=== PATIENT | male | born 1960 | race Caucasian/White ===

== ENCOUNTER 2021-06-21 12:16 | Inpatient (IN) | payer OTHER, SELFPAY ==
[2021-06-21] VITALS (12 sets, daily range): BP systolic 91–162; BP diastolic 31–45; PULSE 38–105; RESP 15–18; TEMP 35.8–36.7; O2SAT 96–99; BMI 25.0; BMI 24.6
--- NOTE | 2021-06-21 | ECG_ITS ---
Test Reason : WEAKNESS Blood Pressure : / mmHG Vent. Rate : 043 BPM Atrial Rate : 064 BPM P-R Int : 000 ms QRS Dur : 110 ms QT Int : 528 ms P-R-T Axes : 000 008 086 degrees QTc Int : 446 ms Sinus rhythm with 2nd degree A-V block (Mobitz I) Left ventricular hypertrophy with repolarization abnormality ( Sokolow-Sebastian , Kar product ) Anteroseptal infarct , age undetermined Abnormal ECG No previous ECGs available Referred By: Generic ED Physician Electronically Signed By:KATHY MORRIS MD
--- NOTE | 2021-06-21 | ECG_ITS ---
Test Reason : BRADYCARDIA Blood Pressure : / mmHG Vent. Rate : 038 BPM Atrial Rate : 038 BPM P-R Int : 256 ms QRS Dur : 108 ms QT Int : 520 ms P-R-T Axes : 043 002 086 degrees QTc Int : 413 ms Normal sinus rhythm with 2nd degree A-V block Septal infarct (cited on or before 21-JUN-2021) Abnormal ECG When compared with ECG of 21-JUN-2021 12:25, 2:1 block is now present Serial changes of Septal infarct Present Referred By: Cristina Smith Electronically Signed By:KATHY MORRIS MD
--- NOTE | ~2021-06-21 | FL_ITS ---
EXAMINATION: XR FLUOROSCOPY WITH IMAGES CLINICAL INFORMATION: Cardiac pacemaker COMPARISON: Chest radiograph 06/21/2021 TECHNIQUE: Fluoroscopy time: 351.1 seconds Cumulative dose: 151.91 mGy Images: 5 FINDINGS: Intraoperative fluoroscopy was provided. No radiologist was in attendance. 2 cardiac pacemaker leads incompletely imaged. Please refer to operative report for complete evaluation. FL/FL guidance in OR IMPRESSION: Please refer to operative report for complete evaluation.
--- NOTE | ~2021-06-21 | XR_ITS ---
EXAMINATION: PORTABLE CHEST 1 VIEW CLINICAL INFORMATION: new pacemaker . COMPARISON: 06/21/2021. TECHNIQUE: Portable frontal view of the chest was obtained. FINDINGS: The lungs are well expanded. No focal infiltrate, effusion, edema, or pneumothorax. Cardiac and mediastinal silhouettes are within normal limits for size. New dual-lead pacemaker seen with lead tips overlying the right atrium and proximal right ventricle. Coronary artery stents again noted. Vascular calcification in the aorta. No acute bony abnormality seen. XR/XR chest 1V IMPRESSION: New dual-lead pacemaker. No pneumothorax. Chronic changes otherwise.
--- NOTE | ~2021-06-21 | XR_ITS ---
EXAMINATION: XR CHEST CLINICAL INFORMATION: Change of IV. COMPARISON: None. TECHNIQUE: Frontal view of the chest was obtained. FINDINGS: No significant abnormality is noted involving the heart, lungs, mediastinum, bony thorax or soft tissues. XR/XR chest 1V IMPRESSION: No acute cardiopulmonary process.
--- NOTE | ~2021-06-21 | XR_ITS ---
EXAMINATION: XR CHEST CLINICAL INFORMATION: Follow-up one week placement of new pacemaker COMPARISON: 06/22/2021 TECHNIQUE: Frontal view of the chest was obtained. FINDINGS: Left-sided pacemaker lead tips overlie the right atrium and right ventricle, similar to prior. Lung volumes are symmetric. No focal consolidation is seen. No evidence of pneumothorax, pleural effusion, or pulmonary edema. Cardiac size is within normal limits. Calcification is present at the aortic arch. No acute osseous findings are seen. XR/XR chest 1V IMPRESSION: Left-sided pacemaker lead tips overlie the regions of the right atrium and right ventricle, similar to prior. No acute cardiopulmonary findings.
--- NOTE | 2021-06-21 12:34 | ED.GENADULT ---
HPI - General Adult General Chief complaint: General Medical Stated complaint: Chest pain sent from urgent care Time Seen by Provider: 06/21/21 12:34 Source: patient Mode of arrival: ambulatory Limitations: no limitations History of Present Illness HPI narrative: 60-year-old male with history of coronary disease with 2 stents that were done 1 year ago at [facility] on Brilinta, hypertension on metoprolol, high cholesterol, rheumatoid arthritis here with several days of fatigue, dizziness and weakness. Patient tells me he was seen at urgent care and was sent into the emergency department for further evaluate. Patient denies chest pain, shortness of breath, cough, fever, leg swelling or leg pain. Denies taking any additional doses of metoprolol. Related Data Home Medications Medication Instructions Recorded Confirmed amlodipine 5 mg tablet 1 tab PO DAILY 06/21/21 06/21/21 aspirin 81 mg chewable tablet 1 tab PO DAILY 06/21/21 06/21/21 atorvastatin 80 mg tablet 1 tab PO DAILY@1200 06/21/21 06/21/21 baricitinib 2 mg tablet (Olumiant) 1 tab PO BEDTIME 06/21/21 06/21/21 esomeprazole magnesium 20 mg 1 cap PO DAILY 06/21/21 06/21/21 capsule,delayed release hydrochlorothiazide 25 mg tablet 1 tab PO DAILY 06/21/21 06/21/21 lisinopril 40 mg tablet 1 tab PO DAILY 06/21/21 06/21/21 metoprolol succinate 50 mg 1 tab PO DAILY 06/21/21 06/21/21 tablet,extended release 24 hr prednisone 5 mg tablet 1 tab PO DAILY 06/21/21 06/21/21 ticagrelor 90 mg tablet (Brilinta) 1 tab PO BID 06/21/21 06/21/21 Allergies Allergy/AdvReac Type Severity Reaction Status Date / Time No Known Allergies Allergy Verified 06/21/21 12:47 Review of Systems Review of Systems: Yes all other systems are reviewed and are negative Constitutional: Constitutional: Reports no additional constitutional complaints, Denies body ache(s), Denies chills, Reports fatigue, Denies fever(s), Denies headache(s) and Reports weakness Eyes: Eyes: Reports no additional eye complaints and Denies change in vision ENT: Reports system reviewed and no additional complaints, except as documented, Reports dizziness, Denies headache(s), Denies nasal congestion, Denies nasal discharge and Denies neck pain Cardiovascular: Cardiovascular: Reports no additional cardiovascular complaints, Denies chest pain, Denies leg edema and Denies dyspnea Respiratory: Respiratory: Reports no additional respiratory complaints, Denies cough and Denies dyspnea Gastrointestinal: Gastrointestinal: Reports no additional gastrointestinal complaints, Denies abdominal pain, Denies diarrhea, Denies nausea and Denies vomiting Genitourinary: Genitourinary: Denies urinary incontinence Musculoskeletal: Musculoskeletal: Reports no additional musculoskeletal complaints, Denies back pain, Denies arthralgias, Denies joint swelling, Denies neck pain, Denies numbness and Denies tingling Integumentary/Breasts: Skin/Breast: Reports system reviewed and no additional complaints, except as docu and Denies rash Neurologic: Reports system reviewed and no additional complaints, except as documented, Reports dizziness, Denies headache(s), Denies numbness, Denies tingling and Reports weakness Endocrine: Endocrine: Reports fatigue PMFSH Past Medical History Attestation statement: The following information was validated with the patient. Source: old records reviewed and nursing notes reviewed Medical History (Updated 06/21/21 @ 17:08 by BARBRA Veras) Coronary artery disease Hyperlipidemia Hypertension Rheumatoid arthritis Family History Family History (Updated 06/21/21 @ 17:08 by BARBRA Veras) Father Hypertension Social History Social History Alcohol intake: current Alcohol intake frequency: a few times a week Patient Tobacco Use Status: Former Tobacco user Use of substances other than those prescribed or required for medical reasons: Yes Substance Use Type: Marijuana Advance Directives: No Advance Directives Information Provided: No Physical Exam ED Vital Signs: Vital Signs - 24 hr 06/21/21 12:28 06/21/21 12:51 06/21/21 12:58 Temperature 96.5 F L Pulse Rate 44 L 38 L 45 L Respiratory Rate 15 18 18 Blood Pressure 147/38 H 154/36 H 126/31 L Pulse Oximetry 99 98 97 06/21/21 13:16 06/21/21 13:24 06/21/21 13:26 Temperature Pulse Rate 40 L 46 L Respiratory Rate 18 18 Blood Pressure 129/37 L 122/38 L Pulse Oximetry 99 98 06/21/21 13:41 06/21/21 13:48 06/21/21 13:51 Temperature Pulse Rate 105 H 41 L 39 L Respiratory Rate 18 18 18 Blood Pressure 105/45 L 91/43 L 140/40 H Pulse Oximetry 98 97 98 06/21/21 14:11 06/21/21 16:05 Temperature 98.1 F Pulse Rate 39 L 39 L Respiratory Rate 18 16 Blood Pressure 141/37 H 162/41 H Pulse Oximetry 96 96 BMI result Body Mass Index 25.0 Const General: cooperative, healthy appearing, comfortable and no acute distress Orientation/consciousness: patient oriented x3 Limitations: no limitations HENMT Head: Yes normal to inspection Ears: hearing grossly normal bilaterally General nose exam: Normal external nose present Face and sinus: Yes normal facial exam Mouth: Normal oral and palatal mucosa present Teeth and gingiva: dentition normal Throat: Yes posterior oropharynx normal Eyes General: appearance normal, both eyes and all related structures Pupils: Equal, round and reactive pupils present Neck Neck: Yes normal visual inspection and Yes full ROM Chest Chest palpation & inspection: normal inspection of the chest Resp Effort & Inspection: normal respiratory effort Auscultation: clear to auscultation bilaterally Cardio Rate: bradycardic Peripheral pulses: Peripheral pulses 2+ throughout GI Inspection: Yes normal to inspection Palpation (GI): Soft to palpation and nontender General: Yes no CVA tenderness Back/Spine/Pelvis Back: no CVA tenderness Thoracic/Lumbar Spine: thoracic and lumbar spine normal to inspection Skin General skin exam: no rashes or lesions noted Neuro General: patient oriented x3, gait normal and moves all extremities Cranial nerves: Yes CN's II-XII intact bilaterally, Yes Equal, round and reactive pupils present, Yes Bilaterally intact EOM present, Yes Nystagmus not present, Yes Normal facial strength present and Yes Midline tongue present Cognition (Neuro): normal cognition Gait exam (Neuro): Normal gait present Motor exam (neuro): 5/5 motor strength present throughout Sensory Exam: Normal double simultaneous stimulation for sensation Extrem General: Yes normal to inspection, Yes no pedal edema and Yes no calf tenderness Course Course Course Narrative: 60 yo male here with complaints of several days of fatigue, weakness, dizziness sent from for further eval noted to be bradycardic on arrival with a stable bp. EKG c/w with a second degree HB type 1 with HR 37-44. BP stable. Placed on cardiac cath technician. Will check labs, CXR, covid screen. Consider beta sarah OD but patient denies any extra doses of medications. He does take metoprolol but unsure of dose. Spoke to cardiology (Dr He). Recommended observation with holding beta sarah, we discussed trialing glucagon IV (confirmed dose with pharmacy 3mg IVP). Will give NSB and admit Reevaluation(s) Reevaluation #1: Single BP 91 systolic, immediate repeat improved. Will monitor. Initial troponin 135. NO chest pain. Updated cards. Plan for repeat. Time: 13:58 Reevaluation #2: Pending repeat troponin. Case was discussed with ICU-patient can be admitted to [facility] as he has stable BP. Will discuss with medicine for admit. Time: 16:00 Reevaluation #3: Troponin repeat is 205.3. This is >50% increased from previous troponin 135. Will discuss with Cardiology Time: 16:40 Additional Reevaluation(s): 1745-2nd attempt to reach Cardiology after greater than 1 hour in regards to change in troponin and query if we should start heparin. Medicine was contacted by cardiology and they will be ordering heparin Medical Decision Making MDM Narrative Medical decision making narrative: symptomatic bradycardia, ACS, beta sarah OD Medical Records Medical records reviewed: Yes I reviewed the patient's medical records. Lab Data Lab results reviewed: Yes I reviewed the patient's lab results. Result diagrams: 06/21/21 12:55 06/21/21 12:55 Labs: Lab Results 06/21/21 06/21/21 06/21/21 Range/Units 12:55 12:55 12:55 WBC 9.3 (4.8-10.8) X10*3/uL RBC 3.74 L (4.60-5.80) X10*6/uL Hgb 10.9 L (14.0-18.0) g/dl Hct 32.7 L (42.0-52.0) % MCV 87.4 (80.0-98.0) fL MCH 29.1 (27.0-33.0) pg MCHC 33.3 (31.0-36.0) g/dl RDW 14.5 (11.0-16.0) % Plt Count 269 (160-400) X10*3/uL MPV 9.8 (9.4-12.4) fL Immature Gran % (Auto) 0.4 (0.0-0.4) % Neut % (Auto) 78.1 H (45-73) % Lymph % (Auto) 13.2 L (20-40) % [place] % (Auto) 7.7 (2-11) % Eos % (Auto) 0.5 (0-4) % Baso % (Auto) 0.1 (0-2) % Lymph # (Auto) 1.2 (1.2-4.9) X10*3/uL [place] # (Auto) 0.7 (0.1-1.2) X10*3/uL Eos # (Auto) 0.1 (0.0-0.4) X10*3/uL Baso # (Auto) 0.0 (0.0-0.2) X10*3/uL Abs Immat Gran (auto) 0.04 H (0.00-0.03) X10*3/uL Absolute Neuts (auto) 7.3 (2.0-8.3) x10*3/uL Absolute Nucleated RBC 0.000 (0.0-0.012) X10*3/uL Nucleated RBC % (auto) 0.0 (0.0-0.2) /100WBC Sodium 130 L (135-145) mmol/L Potassium 4.0 (3.3-5.1) mmol/L Chloride 98 (96-108) mmol/L Carbon Dioxide 22 (22-29) mmol/L Anion Gap 14 (12-20) BUN 21 H (9-16) mg/dL Creatinine 0.81 (0.5-1.4) mg/dL Estim Creat Clear Calc 105.1 Estimated GFR > 60 Random Glucose 100 (60-115) mg/dL Calcium 9.2 (8.4-10.2) mg/dL Magnesium 2.0 (1.6-2.6) mg/dL Total Bilirubin 0.7 (0.0-1.0) mg/dL Direct Bilirubin 0.3 (0.0-0.5) mg/dL AST 27 (5-37) U/L ALT 46 H (0-40) U/L Alkaline Phosphatase 53 (39-117) U/L Troponin I High Sens 135.2 H* (<3.5-35.0) ng/L Total Protein 6.4 L (6.5-8.0) g/dL Albumin 4.0 (3.5-5.0) g/dL COVID-19 (PRINCESS) (Negative) COVID-19 Clin Com 06/21/21 06/21/21 Range/Units 13:40 15:47 WBC (4.8-10.8) X10*3/uL RBC (4.60-5.80) X10*6/uL Hgb (14.0-18.0) g/dl Hct (42.0-52.0) % MCV (80.0-98.0) fL MCH (27.0-33.0) pg MCHC (31.0-36.0) g/dl RDW (11.0-16.0) % Plt Count (160-400) X10*3/uL MPV (9.4-12.4) fL Immature Gran % (Auto) (0.0-0.4) % Neut % (Auto) (45-73) % Lymph % (Auto) (20-40) % [place] % (Auto) (2-11) % Eos % (Auto) (0-4) % Baso % (Auto) (0-2) % Lymph # (Auto) (1.2-4.9) X10*3/uL [place] # (Auto) (0.1-1.2) X10*3/uL Eos # (Auto) (0.0-0.4) X10*3/uL Baso # (Auto) (0.0-0.2) X10*3/uL Abs Immat Gran (auto) (0.00-0.03) X10*3/uL Absolute Neuts (auto) (2.0-8.3) x10*3/uL Absolute Nucleated RBC (0.0-0.012) X10*3/uL Nucleated RBC % (auto) (0.0-0.2) /100WBC Sodium (135-145) mmol/L Potassium (3.3-5.1) mmol/L Chloride (96-108) mmol/L Carbon Dioxide (22-29) mmol/L Anion Gap (12-20) BUN (9-16) mg/dL Creatinine (0.5-1.4) mg/dL Estim Creat Clear Calc Estimated GFR Random Glucose (60-115) mg/dL Calcium (8.4-10.2) mg/dL Magnesium (1.6-2.6) mg/dL Total Bilirubin (0.0-1.0) mg/dL Direct Bilirubin (0.0-0.5) mg/dL AST (5-37) U/L ALT (0-40) U/L Alkaline Phosphatase (39-117) U/L Troponin I High Sens 205.3 H* D (<3.5-35.0) ng/L Total Protein (6.5-8.0) g/dL Albumin (3.5-5.0) g/dL COVID-19 (PRINCESS) Negative (Negative) COVID-19 Clin Com See Note Imaging Data Chest x-ray: Attestation: I personally reviewed and interpreted this imaging study as follows: Radiologist's impression: [place] [id number] XRay Report Signed Patient: Rashawn Lopez MR#: [id number] : 1960 Acct:[id number] Age/Sex: 60 / M ADM Date: 06/21/21 Loc: .ED Attending Dr: Ordering Physician: Tana Jiménez NP Date of Service: 06/21/21 Procedure(s): XR chest 1V Accession Number(s): [id number] cc: Tana Jiménez NP~ EXAMINATION: XR CHEST CLINICAL INFORMATION: Change of IV. COMPARISON: None. TECHNIQUE: Frontal view of the chest was obtained. FINDINGS: No significant abnormality is noted involving the heart, lungs, mediastinum, bony thorax or soft tissues. XR/XR chest 1V IMPRESSION: No acute cardiopulmonary process. ? ECG Data Attestation: I personally reviewed and interpreted this ECG as follows: Interpretation: Sinus rhythm with a second-degree AV block Mobitz 1, rate of 43, normal QRS, QTC 528. T-wave inversions leads V5 and V6. No previous for comparison Discharge Plan Discharge Clinical Impression: Bradycardia Patient Disposition: Admitted As Inpatient
[2021-06-21 13:01] LABS: MANUAL DIFF FLAG NO
[2021-06-21 13:08] LABS: Basophils Percent Auto 0.1 % (0-2); Eosinophils Absolute Auto 0.1 X10*3/uL (0.0-0.4); Eosinophils Percent Auto 0.5 % (0-4); Hematocrit 32.7 % (42.0-52.0); Hemoglobin 10.9 g/dl (14.0-18.0); Imm Gran Abs Auto 0.04 X10*3/uL (0.00-0.03); Imm Gran Pct Auto 0.4 % (0.0-0.4); Lymphocytes Absolute Auto 1.2 X10*3/uL (1.2-4.9); Lymphocytes Percent Auto 13.2 % (20-40); Mean Corpuscular HGB Conc 33.3 g/dl (31.0-36.0); Mean Corpuscular Hemoglobin 29.1 pg (27.0-33.0); Mean Corpuscular Volume 87.4 fL (80.0-98.0); Mean Platelet Volume 9.8 fL (9.4-12.4); Monocytes Absolute Auto 0.7 X10*3/uL (0.1-1.2); Monocytes Percent Auto 7.7 % (2-11); Neutrophils Absolute Auto 7.3 x10*3/uL (2.0-8.3); Neutrophils Percent Auto 78.1 % (45-73); Platelet Count 269 X10*3/uL (160-400); Red Blood Count 3.74 X10*6/uL (4.60-5.80); Red Cell Distribution Width 14.5 % (11.0-16.0); White Blood Count 9.3 X10*3/uL (4.8-10.8)
[2021-06-21] MEDS: 0.9 % Sodium Chloride 1,000 ML 999 ML IV (13:13)
[2021-06-21 13:22] LABS: Alanine Aminotransferase 46 U/L (0-40); Alkaline Phosphatase 53 U/L (39-117); Anion Gap 14 (12-20); Aspartate Amino Transferase 27 U/L (5-37); Bilirubin Direct 0.3 mg/dL (0.0-0.5); Bilirubin Total 0.7 mg/dL (0.0-1.0); Blood Urea Nitrogen 21 mg/dL (9-16); Calcium 9.2 mg/dL (8.4-10.2); Carbon Dioxide 22 mmol/L (22-29); Chloride 98 mmol/L (96-108); Creatinine Clr Calc Pharmacy 105.1; Estimated Glomerular Filt Rate > 60; Glucose Random 100 mg/dL (60-115); Sodium 130 mmol/L (135-145); Total Protein 6.4 g/dL (6.5-8.0)
--- NOTE | 2021-06-21 13:26 | PC.NURSE ---
pt describes a few days of feeling under the weather general weakness w/ body aches. gen weakness worse with exertion. denies SOB and CP and diaphoresis. on metoprolol at home.
--- NOTE | 2021-06-21 13:28 | PC.NURSE ---
nausea and vomiting during administration of 3mg glucagon. glucagon given IVP but over 15 minutes.
[2021-06-21 13:42] LABS: Troponin-I High Sensitivity 135.2 ng/L (<3.5-35.0)
--- NOTE | 2021-06-21 13:47 | PC.NURSE ---
Pt had a few minutes of bigemony and trigemony. states he was feeling better, less nauseated, because glucagon was finished. skin pwd. pressures trending a little lower. provider Samson garcia.
[2021-06-21 14:00] LABS: COVID-19 Test Negative (Negative); IDNOW Serial# 16C4AD1C
--- NOTE | 2021-06-21 14:39 | PHA.MEDREC ---
Pharmacy Consult ? Medication Reconciliation Pharmacy has completed the medication reconciliation.
[2021-06-21 16:38] LABS: Troponin-I High Sensitivity 205.3 ng/L (<3.5-35.0)
--- NOTE | 2021-06-21 17:02 | P.HPHOSP_ITS ---
History of Present Illness Date of Service: 06/21/21 <BARBRA Veras Last Filed: 06/21/21 17:50> Attending physician on admission: Cameron Pablo <BARBRA Veras Last Filed: 06/21/21 17:50> Chief Complaint: Dizziness <BARBRA Veras Last Filed: 06/21/21 17:50> This is a 60-year-old male who presents to the emergency department today with dizziness and fatigue. For the past 3 days patient has noticed generalized weakness, fatigue as well as dizziness. With exertion he feels short of breath. He denies any chest pain or palpitations. He was seen at urgent care facility today and recommended to come to the emergency department for evaluation. He drove himself to the emergency department. EKG revealed profound bradycardia with heart rate in the 30s. EKG showed Mobitz I. Case was discussed with Car diology. Patient received dose IV glucagon. Heart rate remains in the 30s. Patient is asymptomatic at rest, blood pressure has thus far remained stable. Patient takes metoprolol at baseline, reports no recent change in his dose. Troponin initially was 135.2 and increased to 205.3. Patient will be admitted for further management of symptomatic bradycardia <BARBRA Veras - Last Filed: 06/21/21 17:50> Review of Systems Review of Systems: Yes all other systems are reviewed and are negative <BARBRA Veras Last Filed: 06/21/21 17:50> Constitutional: Constitutional: Denies chills, Denies fever(s), Reports lethargy, Reports malaise and Reports weakness <BARBRA Veras Last Filed: 06/21/21 17:50> Cardiovascular: Cardiovascular: Denies chest pain, Reports lightheadedness, Denies dyspnea and Reports slow heart rate <BARBRA Veras Last Filed: 06/21/21 17:50> Respiratory: Respiratory: Denies cough and Denies dyspnea <BARBRA Veras Last Filed: 06/21/21 17:50> Gastrointestinal: Gastrointestinal: Denies abdominal pain <BARBRA Veras Last Filed: 06/21/21 17:50> Neurologic: Reports weakness <BARBRA Veras - Last Filed: 06/21/21 17:50> [facility] Medical History: Medical History (Updated 06/21/21 @ 17:08 by BARBRA Veras) Coronary artery disease Hyperlipidemia Hypertension Rheumatoid arthritis <BARBRA Veras - Last Filed: 06/21/21 17:50> Functional capacity: independent ambulation <BARBRA Veras - Last Filed: 06/21/21 17:50> Family History: Family History (Updated 06/21/21 @ 17:08 by BARBRA Veras) Father Hypertension <BARBRA Veras - Last Filed: 06/21/21 17:50> Social History: Social History Alcohol intake: current Alcohol intake frequency: a few times a week Patient Tobacco Use Status: Former Tobacco user Use of substances other than those prescribed or required for medical reasons: Yes Substance Use Type: Marijuana Advance Directives: No Advance Directives Information Provided: No <BARBRA Veras - Last Filed: 06/21/21 17:50> Meds Allergies/Adverse reactions: Allergies Allergy/AdvReac Type Severity Reaction Status Date / Time No Known Allergies Allergy Verified 06/21/21 12:47 <BARBRA Veras - Last Filed: 06/21/21 17:50> Active Medications: Current Medications Atorvastatin Calcium (Atorvastatin Calcium 80 Mg Tablet) 80 mg PO DAILY@1200 [facility] Non-Formulary Medication (Baricitinib) 1 tab PO BEDTIME [facility] Non-Formulary Medication (Esomeprazole Magnesium) 1 cap PO DAILY [facility] Pharmacy Consult (Consult Rx Perform Med Rec) 1 each MISCELLANE ONCE PRN PRN Reason: Consult order Prednisone (Prednisone 5 Mg Tablet) 5 mg PO DAILY [facility] <BARBRA Veras - Last Filed: 06/21/21 17:50> Home medications: Home Medications Medication Instructions Recorded Confirmed Last Taken Type amlodipine 5 mg tablet 1 tab PO DAILY 06/21/21 06/21/21 06/21/21 History aspirin 81 mg chewable tablet 1 tab PO DAILY 06/21/21 06/21/21 06/21/21 History atorvastatin 80 mg tablet 1 tab PO DAILY@1200 06/21/21 06/21/21 06/21/21 History baricitinib 2 mg tablet (Olumiant) 1 tab PO BEDTIME 06/21/21 06/21/21 06/20/21 History esomeprazole magnesium 20 mg 1 cap PO DAILY 06/21/21 06/21/21 06/21/21 History capsule,delayed release hydrochlorothiazide 25 mg tablet 1 tab PO DAILY 06/21/21 06/21/21 06/21/21 History lisinopril 40 mg tablet 1 tab PO DAILY 06/21/21 06/21/21 06/21/21 History metoprolol succinate 50 mg 1 tab PO DAILY 06/21/21 06/21/21 06/21/21 History tablet,extended release 24 hr prednisone 5 mg tablet 1 tab PO DAILY 06/21/21 06/21/21 06/21/21 History ticagrelor 90 mg tablet (Brilinta) 1 tab PO BID 06/21/21 06/21/21 06/21/21 History <BARBRA Veras Last Filed: 06/21/21 17:50> Physical Exam Vital Signs and Narrative: Vital Signs: Last Vital Signs Temp 98.1 F 06/21/21 16:05 Pulse 39 L 06/21/21 16:05 Resp 16 06/21/21 16:05 BP 162/41 H 06/21/21 16:05 Pulse Ox 96 06/21/21 16:05 BMI result Body Mass Index 25.0 <BARBRA Veras Last Filed: 06/21/21 17:50> Const: General: cooperative, comfortable, alert and awake <BARBRA Veras Last Filed: 06/21/21 17:50> Nutritional Appearance: average body habitus <BARBRA Veras Last Filed: 06/21/21 17:50> Orientation/consciousness: patient oriented x3 <BARBRA Veras Last Filed: 06/21/21 17:50> Resp: Effort & Inspection: normal respiratory effort and able to speak in complete sentences <BARBRA Veras Last Filed: 06/21/21 17:50> Auscultation: clear to auscultation bilaterally <BARBRA Veras - Last Filed: 06/21/21 17:50> Cardio: Rate: bradycardic <BARBRA Veras - Last Filed: 06/21/21 17:50> Heart sounds: S1 normal heart sound present and S2 normal heart sound present <BARBRA Veras - Last Filed: 06/21/21 17:50> GI: Palpation (GI): Soft to palpation and nontender <BARBRA Veras - Last Filed: 06/21/21 17:50> Neuro: General: patient oriented x3 <BARBRA Veras - Last Filed: 06/21/21 17:50> Extrem: General: Yes no pedal edema <BARBRA Veras - Last Filed: 06/21/21 17:50> Results Labs CBC and Chem 7: : 06/22/21 03:49 06/22/21 03:49 <BARBRA Veras - Last Filed: 06/21/21 17:50> Labs: Laboratory Results - last 24 hr 06/21/21 06/21/21 06/21/21 12:55 12:55 12:55 MCV 87.4 MCH 29.1 MCHC 33.3 RDW 14.5 Plt Count 269 MPV 9.8 Immature Gran % (Auto) 0.4 Neut % (Auto) 78.1 H Lymph % (Auto) 13.2 L Imperial % (Auto) 7.7 Eos % (Auto) 0.5 Baso % (Auto) 0.1 Lymph # (Auto) 1.2 Imperial # (Auto) 0.7 Eos # (Auto) 0.1 Baso # (Auto) 0.0 Abs Immat Gran (auto) 0.04 H Absolute Neuts (auto) 7.3 Absolute Nucleated RBC 0.000 Nucleated RBC % (auto) 0.0 Anion Gap 14 Estim Creat Clear Calc 105.1 Estimated GFR > 60 Random Glucose 100 Calcium 9.2 Magnesium 2.0 Total Bilirubin 0.7 Direct Bilirubin 0.3 AST 27 ALT 46 H Alkaline Phosphatase 53 Troponin I High Sens 135.2 H* Total Protein 6.4 L Albumin 4.0 COVID-19 ([facility]) COVID-19 Clin Com 06/21/21 06/21/21 13:40 15:47 MCV MCH MCHC RDW Plt Count MPV Immature Gran % (Auto) Neut % (Auto) Lymph % (Auto) Imperial % (Auto) Eos % (Auto) Baso % (Auto) Lymph # (Auto) Imperial # (Auto) Eos # (Auto) Baso # (Auto) Abs Immat Gran (auto) Absolute Neuts (auto) Absolute Nucleated RBC Nucleated RBC % (auto) Anion Gap Estim Creat Clear Calc Estimated GFR Random Glucose Calcium Magnesium Total Bilirubin Direct Bilirubin AST ALT Alkaline Phosphatase Troponin I High Sens 205.3 H* D Total Protein Albumin COVID-19 ([facility]) Negative COVID-19 Clin Com See Note <BARBRA Veras - Last Filed: 06/21/21 17:50> Imaging Radiologist's Impressions: Impressions Chest X-Ray 06/21/21 13:17 IMPRESSION: No acute cardiopulmonary process. <BARBRA Veras - Last Filed: 06/21/21 17:50> Assessment and Plan (1) Bradycardia: Status: Acute <BARBRA Veras - Last Filed: 06/21/21 17:50> Plan This is a 60-year-old male with history of rheumatoid arthritis on baricitinib and chronic prednisone, CAD status post stent placement x2, hypertension presents to the emergency department with dizziness and fatigue found to have bradycardia, Mobitz type I Symptomatic bradycardia hold metoprolol pacer pads/atropine at bedside Close tele monitoring discussed case with cardiology ICU aware of patient in case of decompensation NPO in preparation for possible PPM NSTEMI h/o CAD s/p stents x 2 approx 1 year ago at [facility] EKG showing twave inversions in I, aVL, V5, V6 - no baseline for comparison no chest pain trops 135, 205 continue statin, ASA, brilinta BB on hold for bradycardia cardiology rec full AC with heparin hyponatremia sodium 130 follow bmp HTN BP so far stable will hold lisinopril, HCTZ for now can resume as bp allows RA continue baricitinib, prednisone gerd continue prilosec DVT prophylaxis-mechanical devices, heparin Code status-full code Attending-Dr. Pablo Due to symptomatic bradycardia and possible need for permanent pacemaker, close cardiac monitoring patient will likely require 2 midnight stay in the hospital; management can not be done in a less acute setting <BARBRA Veras - Last Filed: 06/21/21 17:50> This is a 60-year-old male with history of rheumatoid arthritis on baricitinib and chronic prednisone, CAD status post stent placement x2, hypertension presents to the emergency department with dizziness and fatigue found to have bradycardia, Mobitz type I Symptomatic bradycardia hold metoprolol pacer pads/atropine at bedside Close tele monitoring discussed case with cardiology ICU aware of patient in case of decompensation NPO in preparation for possible PPM NSTEMI h/o CAD s/p stents x 2 approx 1 year ago at [facility] EKG showing twave inversions in I, aVL, V5, V6 - no baseline for comparison no chest pain trops 135, 205 continue statin, ASA, brilinta BB on hold for bradycardia cardiology rec full AC with heparin hyponatremia sodium 130 follow bmp HTN BP so far stable will hold lisinopril, HCTZ for now can resume as bp allows RA continue baricitinib, prednisone gerd continue prilosec DVT prophylaxis-mechanical devices, heparin Code status-full code Attending-Dr. Pablo Chart reviewed; patient examined. Agree with history and physical and plan as outlined by Ms. Smith. Due to symptomatic bradycardia and possible need for permanent pacemaker, close cardiac monitoring patient will likely require 2 midnight stay in the hospital; management can not be done in a less acute setting <Cameron Pablo DO - Last Filed: 06/22/21 07:52> Quality Stroke Does the patient have a stroke diagnosis?: No <BARBRA Veras - Last Filed: 06/21/21 17:50> VTE Prior VTE?: No <BARBRA Veras - Last Filed: 06/21/21 17:50> VTE Risk Level:: Medical - moderate - high <BARBRA Veras - Last Filed: 06/21/21 17:50> VTE Device Contraindication: N/A - Device Ordered <BARBRA Veras - Last Filed: 06/21/21 17:50> VTE Drug Contraindication: Treatment Not Indicated <BARBRA Veras - Last Filed: 06/21/21 17:50>
[2021-06-21 18:08] LABS: Hematocrit 34.5 % (42.0-52.0); Hemoglobin 11.4 g/dl (14.0-18.0); Mean Corpuscular Hemoglobin 29.5 pg (27.0-33.0); Mean Corpuscular Volume 89.1 fL (80.0-98.0); Mean Platelet Volume 9.7 fL (9.4-12.4); Platelet Count 301 X10*3/uL (160-400); Red Blood Count 3.87 X10*6/uL (4.60-5.80); Red Cell Distribution Width 14.6 % (11.0-16.0); White Blood Count 9.7 X10*3/uL (4.8-10.8)
[2021-06-21 18:24] LABS: Prothrombin Time 11.7 SEC (9.9-13.0)
[2021-06-21 18:30] LABS: Troponin-I High Sensitivity 277.6 ng/L (<3.5-35.0)
[2021-06-21] MEDS: Heparin Sodium,Porcine 5,000 UNIT/ML VIAL 6600 UNIT IVPUSH (19:05)
[2021-06-21] MEDS: Heparin Sodium,Porcine/1/2NS 25,000 UNIT/250 ML IV.SOLN 9.9 UNIT IVCONT (19:06)
[2021-06-21] MEDS: Ticagrelor 90 MG TABLET PO (22:08)
[2021-06-21] MEDS: Acetaminophen 325 MG TABLET 650 MG PO (22:08)
--- NOTE | 2021-06-21 22:51 | PC.NURSE ---
Took report from Mahamed to assume care of PT.
[2021-06-22] VITALS (10 sets, daily range): BP systolic 136–174; BP diastolic 41–76; PULSE 41–74; RESP 18–19; TEMP 36.4–37; O2SAT 93–97
--- NOTE | 2021-06-22 | ECG_ITS ---
Test Reason : REPEAT EKG Blood Pressure : / mmHG Vent. Rate : 040 BPM Atrial Rate : 040 BPM P-R Int : 000 ms QRS Dur : 108 ms QT Int : 544 ms P-R-T Axes : 067 004 123 degrees QTc Int : 443 ms Sinus rhythm with complete heart block Septal infarct (cited on or before 21-JUN-2021) ST & T wave abnormality, consider lateral ischemia Abnormal ECG When compared with ECG of 21-JUN-2021 17:38, Complete heart block present Referred By: Cristina Smith Electronically Signed By:Handy Chow
--- NOTE | 2021-06-22 01:22 | PC.NURSE ---
Phlebotomy at bedside to draw PTT, Pt sleeping, on vessel captain, HR 40-42, Heparin drip infusing, safety maintained, call light in reach, This RN continues to monitor.
[2021-06-22 02:00] LABS: PTT Heparin Drip 73.7 SEC (53-77.9)
--- NOTE | 2021-06-22 02:03 | PC.NURSE ---
Ptt 73.7, no change to Heparin drip rate, verified with charge nurse Skyla, Pt sleeping, chest rise and fall observed, Pt on planting supervisor, safety maintained, call light in reach, this RN continues to monitor.
--- NOTE | 2021-06-22 02:53 | PC.NURSE ---
Pt sleeping, chest rise and fall observed, Pt on monitoring engineer, HR 42-44, Heparin drip infusing, safety maintained, call light in reach.
--- NOTE | 2021-06-22 03:48 | PC.NURSE ---
Pt BP on R 141/43, 143/34 and then on the left 141/43 and manual BP on L 136/38, Pt asymptomatic Hospitalist made aware.
[2021-06-22 04:17] LABS: Hematocrit 31.2 % (42.0-52.0); Hemoglobin 10.5 g/dl (14.0-18.0); Mean Corpuscular HGB Conc 33.7 g/dl (31.0-36.0); Mean Corpuscular Hemoglobin 29.5 pg (27.0-33.0); Mean Corpuscular Volume 87.6 fL (80.0-98.0); Mean Platelet Volume 10.3 fL (9.4-12.4); Platelet Count 274 X10*3/uL (160-400); Red Blood Count 3.56 X10*6/uL (4.60-5.80); Red Cell Distribution Width 14.5 % (11.0-16.0); White Blood Count 8.5 X10*3/uL (4.8-10.8)
[2021-06-22 04:27] LABS: INTERNATIONAL NORM RATIO 1.2 (0.9-1.1); Prothrombin Time 13.1 SEC (9.9-13.0)
[2021-06-22 04:55] LABS: Anion Gap 14 (12-20); Blood Urea Nitrogen 16 mg/dL (9-16); Calcium 8.6 mg/dL (8.4-10.2); Carbon Dioxide 21 mmol/L (22-29); Chloride 101 mmol/L (96-108); Creatinine Clr Calc Pharmacy 109.1; Estimated Glomerular Filt Rate > 60; Glucose Random 81 mg/dL (60-115); Sodium 132 mmol/L (135-145)
[2021-06-22] MEDS: Omeprazole 20 MG CAPSULE.DR PO (06:06)
--- NOTE | 2021-06-22 06:18 | PC.NURSE ---
Pt sleeping, chest rise and fall observed, Pt no complaint throughout the night, Pt on production roustabout, Heparin drip infusing, safety maintained, call light in reach, this RN continues to monitor.
--- NOTE | 2021-06-22 07:36 | PC.NURSE ---
this headline writer assumed care of pt at 0700. pt alert, and oriented, denies chest pain, sob, headache, dizziness. pt's HR reading between 39 and low 40s. his HR drops to 39 and immediately goes back up to 41 - 42. his diastolic b/p running low to high 40s. pt asymptomatic. awaiting confirmation for transfer to [facility] [place]. will continue to monitor.
[2021-06-22 07:38] LABS: PTT Heparin Drip 55.1 SEC (53-77.9)
--- NOTE | 2021-06-22 08:15 | PC.NURSE ---
Heparin drip running at 12u/kg/h. no change.
--- NOTE | 2021-06-22 09:00 | PC.NURSE ---
2 consecutive PTT HP results, no dose change. next PTT HP blood draw due at 06/23/21 at 0810. order in computer. will continue to monitor
--- NOTE | 2021-06-22 10:05 | MHC.CM.PN ---
MALE 60 DX SYMPTOMATIC BRADYCARDIA HE LIVES ALONE. HE IS INDEPENDENT ALL FUNCTIONAL MOBILITY. HE REQUESTS TRANSFER TO [facility] [place]. CARDIAC CONSULT HAS BEEN DONE. PER MD NO NEED TO TRANSFER AT THIS TIME. PATIENT IS ON A HEPARIN GTT S/P NSTEMI. PACER APPLIED AND ICU AWARE OF PT PER EMR DOCUMENTATION. DECISION TO TRANSFER DEPENDENT ON NEXT TROPONIN RESULT. DP [facility], [facility] VIA BLS VS NOT LIKELY HOME PRIVATE TRANSPORT. PCP VIVIANA BAEZ [facility] [place]. A HCP HAS BEEN DOCUMENTED AND PLACED ON CHART. COPIES PROVIDED TO PATIENT AND HCP.
--- NOTE | 2021-06-22 12:13 | P.CONCA_ITS ---
History of Present Illness History of Present Illness Date of Service: 06/22/21 Requesting physician: Cristina Smith Consult reason: other (Complete heart block) Chief complaint: symptomatic bradycardia Narrative: I was requested to see Rashawn in cardiology consultation today for bradycardia. Yesterday we hours consulted from the emergency room and patient present with symptoms of exertional fatigue and dizziness. Was noted to have bradycardia. Stres EKG will more consistent with Mobitz type 1 second-degree AV block. He is on metoprolol but unchanged dose. His metoprolol was withheld he was given IV glucagon without any change in his heart rate. Overnight has remained bradycardic despite holding metoprolol for greater than 24 hours. EKG this morning is most suggestive complete heart block. Patient present with progr essive symptoms more suggestive low stroke volume and cardiac output consistent with exertional fatigue and dizziness. He denies any chest pain or shortness of breath. His troponin was slightly elevated. EKG shows lateral ST depression which is probably suggestive LVH with repolarization abnormality. Ischemia cannot be entirely ruled out. Cardiology consult was sought for further management plan. Patient is a welder fitter apprentice at [employer], I could not recognize the name. No symptoms at rest Review of Systems Constitutional: Constitutional: Reports no additional constitutional complaints Eyes: Eyes: Reports no additional eye complaints ENT: Reports dizziness (Exertional) Cardiovascular: Cardiovascular: Denies chest pain, Denies syncope, Denies leg edema, Denies dyspnea on exertion, Denies orthopnea and Reports other (Exertional fatigue) Respiratory: Respiratory: Reports no additional respiratory complaints and Denies dyspnea on exertion Gastrointestinal: Gastrointestinal: Reports no additional gastrointestinal complaints Genitourinary: Genitourinary: Reports no additional male genitourinary complaints Musculoskeletal: Musculoskeletal: Reports no additional musculoskeletal complaints Integumentary/Breasts: Skin/Breast: Reports system reviewed and no additional complaints, except as docu Neurologic: Reports system reviewed and no additional complaints, except as documented, Reports dizziness (Exertional) and Denies syncope Psychiatric: Psychiatric: Reports no additional psychiatric complaints Endocrine: Endocrine: Reports no additional endocrine complaints Hematologic/Lymphatic: Hematologic/Lymphatic: Reports no additional hematologic/lymphatic complaints Allergic/Immunologic: Allergic/Immunologic: Reports no additional allergic/immunologic complaints [facility] Past Medical History Medical History (Updated 06/22/21 @ 12:22 by Delano eH MD) Complete heart block Coronary artery disease Hyperlipidemia Hypertension Rheumatoid arthritis Functional capacity: independent ambulation Family History Family History Father Hypertension Social History Social History Alcohol intake: current Alcohol intake frequency: a few times a week Patient Tobacco Use Status: Former Tobacco user Use of substances other than those prescribed or required for medical reasons: Yes Substance Use Type: Marijuana Advance Directives: No Advance Directives Information Provided: No service: No Current occupational status: employed Meds Allergies Allergy/AdvReac Type Severity Reaction Status Date / Time No Known Allergies Allergy Verified 06/21/21 12:47 Active Medications: Current Medications Acetaminophen (Acetaminophen 325 Mg Tablet) 650 mg PO Q6H PRN PRN Reason: Pain, Mild (Pain Scale 1-3) Last Admin: 06/21/21 22:08 Dose: 650 mg Documented by: Aspirin (Aspirin 81 Mg Tab.Chew) 81 mg PO DAILY [facility] Last Admin: 06/22/21 09:36 Dose: Not Given Documented by: Atorvastatin Calcium (Atorvastatin Calcium 80 Mg Tablet) 80 mg PO DAILY@1200 [facility] Last Admin: 06/22/21 11:55 Dose: Not Given Documented by: Atropine Sulfate (Atropine Sulfate 1 Mg/Ml Vial) 0.5 mg IVPUSH ONCE PRN PRN Reason: symptomatic bradycarida Docusate Sodium (Docusate Sodium 100 Mg Capsule) 100 mg PO DAILY PRN PRN Reason: Constipation Non-Formulary Medication (Baricitinib) 1 tab PO BEDTIME [facility] Omeprazole (Omeprazole 20 Mg Capsule.) 20 mg PO DAILY@0630 [facility] Last Admin: 06/22/21 06:06 Dose: 20 mg Documented by: Pharmacy Consult (Consult Rx Perform Med Rec) 1 each MISCELLANE ONCE PRN PRN Reason: Consult order Prednisone (Prednisone 5 Mg Tablet) 5 mg PO DAILY [facility] Last Admin: 06/22/21 09:36 Dose: Not Given Documented by: Sodium Chloride (0.9 % Sodium Chloride Flush 3 Ml Syringe) 3 ml IVFLUSH QSHIFT [facility] Last Admin: 06/22/21 07:35 Dose: Not Given Documented by: Ticagrelor (Ticagrelor 90 Mg Tablet) 90 mg PO BID [facility] Last Admin: 06/22/21 09:36 Dose: Not Given Documented by: Home Medications Medication Instructions Recorded Confirmed Last Taken Type amlodipine 5 mg tablet 1 tab PO DAILY 06/21/21 06/21/21 06/21/21 History aspirin 81 mg chewable tablet 1 tab PO DAILY 06/21/21 06/21/21 06/21/21 History atorvastatin 80 mg tablet 1 tab PO DAILY@1200 06/21/21 06/21/21 06/21/21 History baricitinib 2 mg tablet (Olumiant) 1 tab PO BEDTIME 06/21/21 06/21/21 06/20/21 History esomeprazole magnesium 20 mg 1 cap PO DAILY 06/21/21 06/21/21 06/21/21 History capsule,delayed release hydrochlorothiazide 25 mg tablet 1 tab PO DAILY 06/21/21 06/21/21 06/21/21 History lisinopril 40 mg tablet 1 tab PO DAILY 06/21/21 06/21/21 06/21/21 History metoprolol succinate 50 mg 1 tab PO DAILY 06/21/21 06/21/21 06/21/21 History tablet,extended release 24 hr prednisone 5 mg tablet 1 tab PO DAILY 06/21/21 06/21/21 06/21/21 History ticagrelor 90 mg tablet (Brilinta) 1 tab PO BID 06/21/21 06/21/21 06/21/21 History Physical Exam Vital Signs: Vital Signs: Last Vital Signs Temp 98.1 F 06/21/21 16:05 Pulse 42 L 06/22/21 11:54 Resp 18 06/22/21 11:54 BP 165/41 H 06/22/21 11:54 Pulse Ox 96 06/22/21 11:54 BMI result Body Mass Index 24.6 Const: General: cooperative, comfortable, no acute distress, alert, awake and anxious Nutritional Appearance: average body habitus Orientation/consciousness: patient oriented x3 Limitations: no limitations HEENT: Head: Yes normocephalic and Yes occipital foramen tenderness Neck: Neck: Yes trachea midline and Yes supple Chest: Chest palpation & inspection: normal inspection of the chest Resp: Effort & Inspection: normal respiratory effort Auscultation: clear to auscultation bilaterally Cardio: Jugular venous distension: no JVD Palpation: normal PMI Rate: regular rate and bradycardic Rhythm: regular rhythm Heart sounds: S1 normal heart sound present, S2 normal heart sound present, no click, no gallops, no murmurs and no rubs GI: Auscultation: normal bowel sounds Neuro: General: patient oriented x3 and no focal motor deficits Extrem: General: Yes no clubbing, cyanosis or edema Objective Labs and Meds Result diagrams: 06/22/21 03:49 06/22/21 03:49 Lab results: Laboratory Results - last 24 hr 06/21/21 06/21/21 06/21/21 12:55 12:55 12:55 WBC 9.3 RBC 3.74 L Hgb 10.9 L Hct 32.7 L MCV 87.4 MCH 29.1 MCHC 33.3 RDW 14.5 Plt Count 269 MPV 9.8 Immature Gran % (Auto) 0.4 Neut % (Auto) 78.1 H Lymph % (Auto) 13.2 L [place] % (Auto) 7.7 Eos % (Auto) 0.5 Baso % (Auto) 0.1 Lymph # (Auto) 1.2 [place] # (Auto) 0.7 Eos # (Auto) 0.1 Baso # (Auto) 0.0 Abs Immat Gran (auto) 0.04 H Absolute Neuts (auto) 7.3 Absolute Nucleated RBC 0.000 Nucleated RBC % (auto) 0.0 PT INR aPTT Heparin Protocol Sodium 130 L Potassium 4.0 Chloride 98 Carbon Dioxide 22 Anion Gap 14 BUN 21 H Creatinine 0.81 Estim Creat Clear Calc 105.1 Estimated GFR > 60 Random Glucose 100 Calcium 9.2 Magnesium 2.0 Total Bilirubin 0.7 Direct Bilirubin 0.3 AST 27 ALT 46 H Alkaline Phosphatase 53 Troponin I High Sens 135.2 H* Total Protein 6.4 L Albumin 4.0 COVID-19 ([facility]) COVID-19 Clin Com 06/21/21 06/21/21 06/21/21 13:40 15:47 17:59 WBC 9.7 RBC 3.87 L Hgb 11.4 L Hct 34.5 L MCV 89.1 MCH 29.5 MCHC 33.0 RDW 14.6 Plt Count 301 MPV 9.7 Immature Gran % (Auto) Neut % (Auto) Lymph % (Auto) [place] % (Auto) Eos % (Auto) Baso % (Auto) Lymph # (Auto) [place] # (Auto) Eos # (Auto) Baso # (Auto) Abs Immat Gran (auto) Absolute Neuts (auto) Absolute Nucleated RBC 0.000 Nucleated RBC % (auto) 0.0 PT INR aPTT Heparin Protocol Sodium Potassium Chloride Carbon Dioxide Anion Gap BUN Creatinine Estim Creat Clear Calc Estimated GFR Random Glucose Calcium Magnesium Total Bilirubin Direct Bilirubin AST ALT Alkaline Phosphatase Troponin I High Sens 205.3 H* D Total Protein Albumin COVID-19 ([facility]) Negative COVID-19 Clin Com See Note 06/21/21 06/21/21 06/22/21 17:59 17:59 01:27 WBC RBC Hgb Hct MCV MCH MCHC RDW Plt Count MPV Immature Gran % (Auto) Neut % (Auto) Lymph % (Auto) [place] % (Auto) Eos % (Auto) Baso % (Auto) Lymph # (Auto) [place] # (Auto) Eos # (Auto) Baso # (Auto) Abs Immat Gran (auto) Absolute Neuts (auto) Absolute Nucleated RBC Nucleated RBC % (auto) PT 11.7 INR 1.0 aPTT Heparin Protocol 34.0 L 73.7 D Sodium Potassium Chloride Carbon Dioxide Anion Gap BUN Creatinine Estim Creat Clear Calc Estimated GFR Random Glucose Calcium Magnesium Total Bilirubin Direct Bilirubin AST ALT Alkaline Phosphatase Troponin I High Sens 277.6 H* Total Protein Albumin COVID-19 ([facility]) COVID-19 Clin Com 06/22/21 06/22/21 06/22/21 03:49 03:49 03:49 WBC 8.5 RBC 3.56 L Hgb 10.5 L Hct 31.2 L MCV 87.6 MCH 29.5 MCHC 33.7 RDW 14.5 Plt Count 274 MPV 10.3 Immature Gran % (Auto) Neut % (Auto) Lymph % (Auto) [place] % (Auto) Eos % (Auto) Baso % (Auto) Lymph # (Auto) [place] # (Auto) Eos # (Auto) Baso # (Auto) Abs Immat Gran (auto) Absolute Neuts (auto) Absolute Nucleated RBC 0.000 Nucleated RBC % (auto) 0.0 PT 13.1 H INR 1.2 H aPTT Heparin Protocol Sodium 132 L Potassium 4.0 Chloride 101 Carbon Dioxide 21 L Anion Gap 14 BUN 16 Creatinine 0.78 Estim Creat Clear Calc 109.1 Estimated GFR > 60 Random Glucose 81 Calcium 8.6 D Magnesium Total Bilirubin Direct Bilirubin AST ALT Alkaline Phosphatase Troponin I High Sens Total Protein Albumin COVID-19 ([facility]) COVID-19 Clin Com 06/22/21 06/22/21 07:10 09:33 WBC RBC Hgb Hct MCV MCH MCHC RDW Plt Count MPV Immature Gran % (Auto) Neut % (Auto) Lymph % (Auto) [place] % (Auto) Eos % (Auto) Baso % (Auto) Lymph # (Auto) [place] # (Auto) Eos # (Auto) Baso # (Auto) Abs Immat Gran (auto) Absolute Neuts (auto) Absolute Nucleated RBC Nucleated RBC % (auto) PT INR aPTT Heparin Protocol 55.1 D Sodium Potassium Chloride Carbon Dioxide Anion Gap BUN Creatinine Estim Creat Clear Calc Estimated GFR Random Glucose Calcium Magnesium Total Bilirubin Direct Bilirubin AST ALT Alkaline Phosphatase Troponin I High Sens 315.0 H* Total Protein Albumin COVID-19 ([facility]) COVID-19 Clin Com Imaging Radiologist's impression: Impressions Chest X-Ray 06/21/21 13:17 IMPRESSION: No acute cardiopulmonary process. Assessment and Plan (1) Complete heart block: Status: Acute Complete heart block in this middle-aged man with prior history of CAD, could be due to ischemic conduction system disease. Currently not having any ischemic symptoms evidence of acute myocardial infarction. Troponin elevation related to low stroke volume and cardiac output. Not suggestive NSTEMI. IV heparin can be discontinued. Continue dual antiplatelet therapy. Given worsening AV block af ter observation and withdrawal of metoprolol therapy I think he will need a dual-chamber pacemaker to reestablish AV synchrony. Echocardiogram tomorrow to evaluate LV systolic and diastolic function and wall motion abnormality. If after pacemaker placement with exertion tomorrow remained symptomatic, may pursue ischemic evaluation. Continue high-intensity statin therapy. Continue lisinopril therapy for blood pressure. Case was discussed with Dr. Mullen who will place a pacemaker later today. Case was discussed with patient and patient's and discuss with them that the pacemaker can be performed here at this institution. They understand and agree. Will follow up with you tomorrow Procedures Date of Service Date of Service: 06/22/21
--- NOTE | 2021-06-22 12:28 | P.PNIM_ITS ---
Subjective Subjective Date of Service: 06/22/21 <BARBRA Veras - Last Filed: 06/22/21 12:40> 06/22/21 <Cameron Pablo DO - Last Filed: 06/22/21 15:04> Interval History: Seen and examined this morning Follow-up for heart block, symptomatic bradycardia No chest pain, shortness of breath Heart rate has remained high 30s, low 40s <BARBRA Veras - Last Filed: 06/22/21 12:40> Review of Systems Review of Systems: Yes all other systems are reviewed and are negative <BARBRA Veras - Last Filed: 06/22/21 12:40> Constitutional Constitutional: Denies chills and Denies fever(s) <BARBRA Veras - Last Filed: 06/22/21 12:40> Cardiovascular Cardiovascular: Denies chest pain, Denies palpitations and Denies dyspnea <BARBRA Veras - Last Filed: 06/22/21 12:40> Respiratory Respiratory: Denies dyspnea <BARBRA Vreas - Last Filed: 06/22/21 12:40> Gastrointestinal Gastrointestinal: Denies abdominal pain <BARBRA Veras - Last Filed: 06/22/21 12:40> Endocrine Endocrine: Denies palpitations <BARBRA Veras - Last Filed: 06/22/21 12:40> Physical Exam Vital Signs: Vital Signs: Last Vital Signs Temp 98.1 F 06/21/21 16:05 Pulse 42 L 06/22/21 11:54 Resp 18 06/22/21 11:54 BP 165/41 H 06/22/21 11:54 Pulse Ox 96 06/22/21 11:54 BMI result Body Mass Index 24.6 <BARBRA Veras - Last Filed: 06/22/21 12:40> Const: General: cooperative, comfortable, alert and awake <BARBRA Veras - Last Filed: 06/22/21 12:40> Nutritional Appearance: average body habitus <BARBRA Veras - Last Filed: 06/22/21 12:40> Orientation/consciousness: patient oriented x3 <BARBRA Veras - Last Filed: 06/22/21 12:40> Resp: Effort & Inspection: normal respiratory effort and able to speak in complete sentences <BARBRA Veras Last Filed: 06/22/21 12:40> Auscultation: clear to auscultation bilaterally <BARBRA Veras Last Filed: 06/22/21 12:40> Cardio: Rate: bradycardic <BARBRA Veras Last Filed: 06/22/21 12:40> Heart sounds: S1 normal heart sound present and S2 normal heart sound present <BARBRA Veras Last Filed: 06/22/21 12:40> GI: Palpation (GI): Soft to palpation and nontender <BARBRA Veras Last Filed: 06/22/21 12:40> Neuro: General: patient oriented x3 <BARBRA Veras Last Filed: 06/22/21 12:40> Extrem: General: Yes no pedal edema <BARBRA Veras Last Filed: 06/22/21 12:40> Objective Data Active Medications Acetaminophen (Acetaminophen 325 Mg Tablet) 650 mg PO Q6H PRN PRN Reason: Pain, Mild (Pain Scale 1-3) Last Admin: 06/21/21 22:08 Dose: 650 mg Documented by: CODY Aspirin (Aspirin 81 Mg Tab.Chew) 81 mg PO DAILY [facility] Last Admin: 06/22/21 09:36 Dose: Not Given Documented by: LAURENT Non-Admin Reason: NPO Atorvastatin Calcium (Atorvastatin Calcium 80 Mg Tablet) 80 mg PO DAILY@1200 [facility] Last Admin: 06/22/21 11:55 Dose: Not Given Documented by: LAURENT Non-Admin Reason: NPO Atropine Sulfate (Atropine Sulfate 1 Mg/Ml Vial) 0.5 mg IVPUSH ONCE PRN PRN Reason: symptomatic bradycarida Docusate Sodium (Docusate Sodium 100 Mg Capsule) 100 mg PO DAILY PRN PRN Reason: Constipation Non-Formulary Medication (Baricitinib) 1 tab PO BEDTIME [facility] Omeprazole (Omeprazole 20 Mg Capsule.Dr) 20 mg PO DAILY@0630 [facility] Last Admin: 06/22/21 06:06 Dose: 20 mg Documented by: ROMAN Pharmacy Consult (Consult Rx Perform Med Rec) 1 each MISCELLANE ONCE PRN PRN Reason: Consult order Prednisone (Prednisone 5 Mg Tablet) 5 mg PO DAILY [facility] Last Admin: 06/22/21 09:36 Dose: Not Given Documented by: LAURENT Non-Admin Reason: NPO Sodium Chloride (0.9 % Sodium Chloride Flush 3 Ml Syringe) 3 ml IVFLUSH QSHIFT [facility] Last Admin: 06/22/21 07:35 Dose: Not Given Documented by: LAURENT Non-Admin Reason: IV Running Ticagrelor (Ticagrelor 90 Mg Tablet) 90 mg PO BID [facility] Last Admin: 06/22/21 09:36 Dose: Not Given Documented by: LAURENT Non-Admin Reason: NPO <BARBRA Veras - Last Filed: 06/22/21 12:40> Labs CBC & Chem 7: : 06/22/21 03:49 06/22/21 03:49 <BARBRA Veras - Last Filed: 06/22/21 12:40> Labs: Laboratory Results - last 24 hr 06/21/21 06/21/21 06/21/21 12:55 12:55 12:55 MCV 87.4 MCH 29.1 MCHC 33.3 RDW 14.5 Plt Count 269 MPV 9.8 Immature Gran % (Auto) 0.4 Neut % (Auto) 78.1 H Lymph % (Auto) 13.2 L [place] % (Auto) 7.7 Eos % (Auto) 0.5 Baso % (Auto) 0.1 Lymph # (Auto) 1.2 [place] # (Auto) 0.7 Eos # (Auto) 0.1 Baso # (Auto) 0.0 Abs Immat Gran (auto) 0.04 H Absolute Neuts (auto) 7.3 Absolute Nucleated RBC 0.000 Nucleated RBC % (auto) 0.0 PT INR aPTT Heparin Protocol Anion Gap 14 Estim Creat Clear Calc 105.1 Estimated GFR > 60 Random Glucose 100 Calcium 9.2 Magnesium 2.0 Total Bilirubin 0.7 Direct Bilirubin 0.3 AST 27 ALT 46 H Alkaline Phosphatase 53 Troponin I High Sens 135.2 H* Total Protein 6.4 L Albumin 4.0 COVID-19 ([facility]) COVID-19 Clin Com 06/21/21 06/21/21 06/21/21 13:40 15:47 17:59 MCV 89.1 MCH 29.5 MCHC 33.0 RDW 14.6 Plt Count 301 MPV 9.7 Immature Gran % (Auto) Neut % (Auto) Lymph % (Auto) [place] % (Auto) Eos % (Auto) Baso % (Auto) Lymph # (Auto) [place] # (Auto) Eos # (Auto) Baso # (Auto) Abs Immat Gran (auto) Absolute Neuts (auto) Absolute Nucleated RBC 0.000 Nucleated RBC % (auto) 0.0 PT INR aPTT Heparin Protocol Anion Gap Estim Creat Clear Calc Estimated GFR Random Glucose Calcium Magnesium Total Bilirubin Direct Bilirubin AST ALT Alkaline Phosphatase Troponin I High Sens 205.3 H* D Total Protein Albumin COVID-19 ([facility]) Negative COVID-19 Clin Com See Note 06/21/21 06/21/21 06/22/21 17:59 17:59 01:27 MCV MCH MCHC RDW Plt Count MPV Immature Gran % (Auto) Neut % (Auto) Lymph % (Auto) [place] % (Auto) Eos % (Auto) Baso % (Auto) Lymph # (Auto) [place] # (Auto) Eos # (Auto) Baso # (Auto) Abs Immat Gran (auto) Absolute Neuts (auto) Absolute Nucleated RBC Nucleated RBC % (auto) PT 11.7 INR 1.0 aPTT Heparin Protocol 34.0 L 73.7 D Anion Gap Estim Creat Clear Calc Estimated GFR Random Glucose Calcium Magnesium Total Bilirubin Direct Bilirubin AST ALT Alkaline Phosphatase Troponin I High Sens 277.6 H* Total Protein Albumin COVID-19 ([facility]INCESS) COVID-19 Clin Com 06/22/21 06/22/21 06/22/21 03:49 03:49 03:49 MCV 87.6 MCH 29.5 MCHC 33.7 RDW 14.5 Plt Count 274 MPV 10.3 Immature Gran % (Auto) Neut % (Auto) Lymph % (Auto) [place] % (Auto) Eos % (Auto) Baso % (Auto) Lymph # (Auto) [place] # (Auto) Eos # (Auto) Baso # (Auto) Abs Immat Gran (auto) Absolute Neuts (auto) Absolute Nucleated RBC 0.000 Nucleated RBC % (auto) 0.0 PT 13.1 H INR 1.2 H aPTT Heparin Protocol Anion Gap 14 Estim Creat Clear Calc 109.1 Estimated GFR > 60 Random Glucose 81 Calcium 8.6 D Magnesium Total Bilirubin Direct Bilirubin AST ALT Alkaline Phosphatase Troponin I High Sens Total Protein Albumin COVID-19 ([facility]) COVID-19 Clin Com 06/22/21 06/22/21 07:10 09:33 MCV MCH MCHC RDW Plt Count MPV Immature Gran % (Auto) Neut % (Auto) Lymph % (Auto) [place] % (Auto) Eos % (Auto) Baso % (Auto) Lymph # (Auto) [place] # (Auto) Eos # (Auto) Baso # (Auto) Abs Immat Gran (auto) Absolute Neuts (auto) Absolute Nucleated RBC Nucleated RBC % (auto) PT INR aPTT Heparin Protocol 55.1 D Anion Gap Estim Creat Clear Calc Estimated GFR Random Glucose Calcium Magnesium Total Bilirubin Direct Bilirubin AST ALT Alkaline Phosphatase Troponin I High Sens 315.0 H* Total Protein Albumin COVID-19 ([facility]) COVID-19 Clin Com <BARBRA Veras - Last Filed: 06/22/21 12:40> Assessment and Plan (1) Complete heart block: Status: Acute <BARBRA Veras - Last Filed: 06/22/21 12:40> Plan This is a 60-year-old male with history of rheumatoid arthritis on baricitinib and chronic prednisone, CAD status post stent placement x2, hypertension presents to the emergency department with dizziness and fatigue found to have bradycardia, Mobitz type I Symptomatic bradycardia Initially with Mobitz I, repeat EKG this am showing complete AV dissociation - plan for PPM this afternoon hold metoprolol pacer pads/atropine at bedside Close tele monitoring cardiology following Elevated trops secondary to low stroke volume and cardiac output h/o CAD s/p stents x 2 approx 1 year ago at [facility]; EKG showing twave inversions in I, aVL, V5, V6 - no baseline for comparison no chest pain . trops up to 315; initially treated with IV heparin, discontinued this am, per cardiology rec continue statin, ASA, brilinta BB on hold for bradycardia consider ischemic workup if pt remains symptomatic after PPM hyponatremia, improving sodium 132 follow bmp HTN Resume lisinopril HCTZ on hold, can likely resume after PPM placement RA continue baricitinib, prednisone gerd continue prilosec DVT prophylaxis-mechanical devices Code status-full code Attending-Dr. Pablo Requires ongoing hospitalization Due to symptomatic bradycardia and need for permanent pacemaker, close cardiac monitoring <BARBRA Veras - Last F iled: 06/22/21 12:40> This is a 60-year-old male with history of rheumatoid arthritis on baricitinib and chronic prednisone, CAD status post stent placement x2, hypertension presents to the emergency department with dizziness and fatigue found to have bradycardia, Mobitz type I Symptomatic bradycardia Initially with Mobitz I, repeat EKG this am showing complete AV dissociation - plan for PPM this afternoon hold metoprolol pacer pads/atropine at bedside Close tele monitoring cardiology following Elevated trops secondary to low stroke volume and cardiac output h/o CAD s/p stents x 2 approx 1 year ago at [facility]; EKG showing twave inversions in I, aVL, V5, V6 - no baseline for comparison no chest pain . trops up to 315; initially treated with IV heparin, discontinued this am, per cardiology rec continue statin, ASA, brilinta BB on hold for bradycardia consider ischemic workup if pt remains symptomatic after PPM hyponatremia, improving sodium 132 follow bmp HTN Resume lisinopril HCTZ on hold, can likely resume after PPM placement RA continue baricitinib, prednisone gerd continue prilosec DVT prophylaxis-mechanical devices Code status-full code Attending-Dr. Pablo Chart reviewed; patient examined. Agree with history physical and plan as outlined by Ms. Smith Requires ongoing hospitalization Due to symptomatic bradycardia and need for permanent pacemaker, close cardiac monitoring <Cameron Pablo DO - Last Filed: 06/22/21 15:04> Quality Stroke Does the patient have a stroke diagnosis?: No <BARBRA Veras - Last Filed: 06/22/21 12:40> VTE Prior VTE?: No <BARBRA Veras - Last Filed: 06/22/21 12:40> VTE Risk Level:: Medical - moderate - high <BARBRA Veras - Last Filed: 06/22/21 12:40> VTE Device Contraindication: N/A - Device Ordered <BARBRA Veras Last Filed: 06/22/21 12:40> VTE Drug Contraindication: Treatment Not Indicated <BARBRA Veras Last Filed: 06/22/21 12:40>
--- NOTE | 2021-06-22 14:11 | HO.ANESPROP2 ---
HPI - Anesthesia Eval Consult details Narrative: Complete AV block PMFSH Active Problems Active Problems: All Active Problems (Updated 06/22/21 @ 12:22 by Delano He MD) Complete heart block (Acute) Bradycardia (Acute) Past Medical History Medical History (Updated 06/22/21 @ 12:22 by Delano He MD) Complete heart block Coronary artery disease Hyperlipidemia Hypertension Rheumatoid arthritis Functional capacity: independent ambulation Family History Family History Father Hypertension Family history of problems with anesthesia: No Surgical History History of Problems with Anesthesia: No Social History Social History Alcohol intake: current Alcohol intake frequency: a few times a week Patient Tobacco Use Status: Former Tobacco user Use of substances other than those prescribed or required for medical reasons: Yes Substance Use Type: Marijuana Advance Directives: No Advance Directives Information Provided: No service: No Current occupational status: employed Meds Allergies Allergy/AdvReac Type Severity Reaction Status Date / Time No Known Allergies Allergy Verified 06/21/21 12:47 Active Medications: Current Medications Acetaminophen (Acetaminophen 325 Mg Tablet) 650 mg PO Q6H PRN PRN Reason: Pain, Mild (Pain Scale 1-3) Last Admin: 06/21/21 22:08 Dose: 650 mg Documented by: Aspirin (Aspirin 81 Mg Tab.Chew) 81 mg PO DAILY [facility] Last Admin: 06/22/21 09:36 Dose: Not Given Documented by: Atorvastatin Calcium (Atorvastatin Calcium 80 Mg Tablet) 80 mg PO DAILY@1200 [facility] Last Admin: 06/22/21 11:55 Dose: Not Given Documented by: Atropine Sulfate (Atropine Sulfate 1 Mg/Ml Vial) 0.5 mg IVPUSH ONCE PRN PRN Reason: symptomatic bradycarida Docusate Sodium (Docusate Sodium 100 Mg Capsule) 100 mg PO DAILY PRN PRN Reason: Constipation Lisinopril (Lisinopril 40 Mg Tablet) 40 mg PO DAILY [facility]; Protocol Non-Formulary Medication (Baricitinib) 1 tab PO BEDTIME [facility] Omeprazole (Omeprazole 20 Mg Capsule.Dr) 20 mg PO DAILY@0630 [facility] Last Admin: 06/22/21 06:06 Dose: 20 mg Documented by: Pharmacy Consult (Consult Rx Perform Med Rec) 1 each MISCELLANE ONCE PRN PRN Reason: Consult order Prednisone (Prednisone 5 Mg Tablet) 5 mg PO DAILY [facility] Last Admin: 06/22/21 09:36 Dose: Not Given Documented by: Sodium Chloride (0.9 % Sodium Chloride Flush 3 Ml Syringe) 3 ml IVFLUSH QSHIFT [facility] Last Admin: 06/22/21 07:35 Dose: Not Given Documented by: Ticagrelor (Ticagrelor 90 Mg Tablet) 90 mg PO BID [facility] Last Admin: 06/22/21 09:36 Dose: Not Given Documented by: Home Medications Medication Instructions Recorded Confirmed Last Taken Type amlodipine 5 mg tablet 1 tab PO DAILY 06/21/21 06/21/21 06/21/21 History aspirin 81 mg chewable tablet 1 tab PO DAILY 06/21/21 06/21/21 06/21/21 History atorvastatin 80 mg tablet 1 tab PO DAILY@1200 06/21/21 06/21/21 06/21/21 History baricitinib 2 mg tablet (Olumiant) 1 tab PO BEDTIME 06/21/21 06/21/21 06/20/21 History esomeprazole magnesium 20 mg 1 cap PO DAILY 06/21/21 06/21/21 06/21/21 History capsule,delayed release hydrochlorothiazide 25 mg tablet 1 tab PO DAILY 06/21/21 06/21/21 06/21/21 History lisinopril 40 mg tablet 1 tab PO DAILY 06/21/21 06/21/21 06/21/21 History metoprolol succinate 50 mg 1 tab PO DAILY 06/21/21 06/21/21 06/21/21 History tablet,extended release 24 hr prednisone 5 mg tablet 1 tab PO DAILY 06/21/21 06/21/21 06/21/21 History ticagrelor 90 mg tablet (Brilinta) 1 tab PO BID 06/21/21 06/21/21 06/21/21 History Exam Exam Date and Time: June 22, 2021 141 Height,Weight and Vital Signs: Height 6 ft Weight 82.5 kg Last Vital Signs Temp 98.1 F 06/21/21 16:05 Pulse 42 L 06/22/21 11:54 Resp 18 06/22/21 11:54 BP 165/41 H 06/22/21 11:54 Pulse Ox 96 06/22/21 11:54 Pertinent Lab Results Pertinent Lab Results: Laboratory Tests 06/21/21 06/21/21 06/21/21 12:55 12:55 12:55 WBC 9.3 RBC 3.74 L Hgb 10.9 L Hct 32.7 L MCV 87.4 MCH 29.1 MCHC 33.3 RDW 14.5 Plt Count 269 MPV 9.8 Immature Gran % (Auto) 0.4 Neut % (Auto) 78.1 H Lymph % (Auto) 13.2 L [place] % (Auto) 7.7 Eos % (Auto) 0.5 Baso % (Auto) 0.1 Lymph # (Auto) 1.2 [place] # (Auto) 0.7 Eos # (Auto) 0.1 Baso # (Auto) 0.0 Abs Immat Gran (auto) 0.04 H Absolute Neuts (auto) 7.3 Absolute Nucleated RBC 0.000 Nucleated RBC % (auto) 0.0 PT INR aPTT Heparin Protocol Sodium 130 L Potassium 4.0 Chloride 98 Carbon Dioxide 22 Anion Gap 14 BUN 21 H Creatinine 0.81 Estim Creat Clear Calc 105.1 Estimated GFR > 60 Random Glucose 100 Calcium 9.2 Magnesium 2.0 Total Bilirubin 0.7 Direct Bilirubin 0.3 AST 27 ALT 46 H Alkaline Phosphatase 53 Troponin I High Sens 135.2 H* Total Protein 6.4 L Albumin 4.0 COVID-19 ([facility]ESS) COVID-19 [employer] 06/21/21 06/21/21 06/21/21 13:40 15:47 17:59 WBC 9.7 RBC 3.87 L Hgb 11.4 L Hct 34.5 L MCV 89.1 MCH 29.5 MCHC 33.0 RDW 14.6 Plt Count 301 MPV 9.7 Immature Gran % (Auto) Neut % (Auto) Lymph % (Auto) [place] % (Auto) Eos % (Auto) Baso % (Auto) Lymph # (Auto) [place] # (Auto) Eos # (Auto) Baso # (Auto) Abs Immat Gran (auto) Absolute Neuts (auto) Absolute Nucleated RBC 0.000 Nucleated RBC % (auto) 0.0 PT INR aPTT Heparin Protocol Sodium Potassium Chloride Carbon Dioxide Anion Gap BUN Creatinine Estim Creat Clear Calc Estimated GFR Random Glucose Calcium Magnesium Total Bilirubin Direct Bilirubin AST ALT Alkaline Phosphatase Troponin I High Sens 205.3 H* D Total Protein Albumin COVID-19 ([facility]) Negative COVID-19 [employer] See Note 06/21/21 06/21/21 06/22/21 17:59 17:59 01:27 WBC RBC Hgb Hct MCV MCH MCHC RDW Plt Count MPV Immature Gran % (Auto) Neut % (Auto) Lymph % (Auto) [place] % (Auto) Eos % (Auto) Baso % (Auto) Lymph # (Auto) [place] # (Auto) Eos # (Auto) Baso # (Auto) Abs Immat Gran (auto) Absolute Neuts (auto) Absolute Nucleated RBC Nucleated RBC % (auto) PT 11.7 INR 1.0 aPTT Heparin Protocol 34.0 L 73.7 D Sodium Potassium Chloride Carbon Dioxide Anion Gap BUN Creatinine Estim Creat Clear Calc Estimated GFR Random Glucose Calcium Magnesium Total Bilirubin Direct Bilirubin AST ALT Alkaline Phosphatase Troponin I High Sens 277.6 H* Total Protein Albumin COVID-19 ([facility]) [employer] 06/22/21 06/22/21 06/22/21 03:49 03:49 03:49 WBC 8.5 RBC 3.56 L Hgb 10.5 L Hct 31.2 L MCV 87.6 MCH 29.5 MCHC 33.7 RDW 14.5 Plt Count 274 MPV 10.3 Immature Gran % (Auto) Neut % (Auto) Lymph % (Auto) [place] % (Auto) Eos % (Auto) Baso % (Auto) Lymph # (Auto) [place] # (Auto) Eos # (Auto) Baso # (Auto) Abs Immat Gran (auto) Absolute Neuts (auto) Absolute Nucleated RBC 0.000 Nucleated RBC % (auto) 0.0 PT 13.1 H INR 1.2 H aPTT Heparin Protocol Sodium 132 L Potassium 4.0 Chloride 101 Carbon Dioxide 21 L Anion Gap 14 BUN 16 Creatinine 0.78 Estim Creat Clear Calc 109.1 Estimated GFR > 60 Random Glucose 81 Calcium 8.6 D Magnesium Total Bilirubin Direct Bilirubin AST ALT Alkaline Phosphatase Troponin I High Sens Total Protein Albumin COVID-19 ([facility]) [facility] 06/22/21 06/22/21 07:10 09:33 WBC RBC Hgb Hct MCV MCH MCHC RDW Plt Count MPV Immature Gran % (Auto) Neut % (Auto) Lymph % (Auto) [place] % (Auto) Eos % (Auto) Baso % (Auto) Lymph # (Auto) [place] # (Auto) Eos # (Auto) Baso # (Auto) Abs Immat Gran (auto) Absolute Neuts (auto) Absolute Nucleated RBC Nucleated RBC % (auto) PT INR aPTT Heparin Protocol 55.1 D Sodium Potassium Chloride Carbon Dioxide Anion Gap BUN Creatinine Estim Creat Clear Calc Estimated GFR Random Glucose Calcium Magnesium Total Bilirubin Direct Bilirubin AST ALT Alkaline Phosphatase Troponin I High Sens 315.0 H* Total Protein Albumin COVID-19 ([facility]) COVID-19 Clin Com Airway Mallampati Class: II TM Dist: >3cm Neck ROM: Full Loose/Missing/Broken Teeth: No Heart: RRR Lungs: CTA Assessment and Plan Assessment Anesthesia Assessment: Anesthesia Plan Discussed and Chart Reviewed Final Anesthetic Review Family History of Problems with Anesthesia: No History of Problems with Anesthesia: No ASA Class: III Final Preanesthetic Review: No Changes in Pt Med Stat, Meds/Allgs Chart Reviewed, Consent Obtained/Reviewed and Anes Risks/Benef Reviewed Patient Risk: Intermediate Procedure Risk: Low Anesthetic Plan Anesthetic Plan: MAC: Disposition: Standard PACU
--- NOTE | 2021-06-22 14:24 | W.PM.CCCN ---
History of Present Illness Data of Consult Service Date: 06/22/21 Requesting physician: Delano He Primary Care Provider: Nonstaff Physician HPI Reason for consult: Symptomatic bradycardia-initially Mobitz 1 second-degree now complete heart 60-year-old male with progressive exertional fatigue and weakness and shortness of breath with background of ischemic heart disease status post stent x2 on ticagrelor and and known hypertensive and hyperlipidemic and underlying rheumatoid arthritis for which he is on a monoclonal antibody namely baricitinib as well as a toward the statin hydrochlorothiazide and lisinopril and metoprolol and prednisone Review of Systems Review of Systems: Yes all other systems are reviewed and are negative [facility] Past Medical History Medical History (Updated 06/22/21 @ 14:27 by Carissa Mullen MD) Complete heart block Coronary artery disease Hyperlipidemia Hypertension Rheumatoid arthritis Functional capacity: independent ambulation Family History Family History Father Hypertension Social History Social History Alcohol intake: current Alcohol intake frequency: a few times a week Patient Tobacco Use Status: Former Tobacco user Use of substances other than those prescribed or required for medical reasons: Yes Substance Use Type: Marijuana Advance Directives: No Advance Directives Information Provided: No service: No Current occupational status: employed Meds Allergies Allergy/AdvReac Type Severity Reaction Status Date / Time No Known Allergies Allergy Verified 06/21/21 12:47 Active Medications: Current Medications Acetaminophen (Acetaminophen 325 Mg Tablet) 650 mg PO Q6H PRN PRN Reason: Pain, Mild (Pain Scale 1-3) Last Admin: 06/21/21 22:08 Dose: 650 mg Documented by: Acetaminophen (Acetaminophen 325 Mg Tablet) 650 mg PO ONCE PRN PRN Reason: Pain, Mild (Pain Scale 1-3) Aspirin (Aspirin 81 Mg Tab.Chew) 81 mg PO DAILY [facility] Last Admin: 06/22/21 09:36 Dose: Not Given Documented by: Atorvastatin Calcium (Atorvastatin Calcium 80 Mg Tablet) 80 mg PO DAILY@1200 [facility] Last Admin: 06/22/21 11:55 Dose: Not Given Documented by: Atropine Sulfate (Atropine Sulfate 1 Mg/Ml Vial) 0.5 mg IVPUSH ONCE PRN PRN Reason: symptomatic bradycarida Baricitinib (Baricitinib 2 Mg Tablet) 2 mg PO BEDTIME [facility] Docusate Sodium (Docusate Sodium 100 Mg Capsule) 100 mg PO DAILY PRN PRN Reason: Constipation Fentanyl (Fentanyl Citrate/Pf 100 Mcg/2 Ml Vial) 25 mcg IVPUSH Q5M PRN; Protocol PRN Reason: Pain, Moderate (Pain Scale 4-6 Hydromorphone HCl (Hydromorphone Hcl 0.5 Mg/0.5 Ml Syringe) 0.25 mg IVPUSH Q5M PRN; Protocol PRN Reason: Pain, Severe (Pain Scale 7-10) Promethazine HCl 12.5 mg/ (Sodium Chloride) 50.5 mls @ 202 mls/hr IV ONCE PRN PRN Reason: Nausea and Vomiting Lisinopril (Lisinopril 40 Mg Tablet) 40 mg PO DAILY [facility]; Protocol Omeprazole (Omeprazole 20 Mg Capsule.Dr) 20 mg PO DAILY@0630 [facility] Last Admin: 06/22/21 06:06 Dose: 20 mg Documented by: Ondansetron HCl (Ondansetron Hcl 4 Mg/2 Ml Vial) 4 mg IVPUSH ONCE PRN PRN Reason: Nausea and Vomiting Oxycodone HCl (Oxycodone Hcl Immed Release 5 Mg Tablet) 5 mg PO ONCE PRN PRN Reason: Pain, Severe (Pain Scale 7-10) Pharmacy Consult (Consult Rx Perform Med Rec) 1 each MISCELLANE ONCE PRN PRN Reason: Consult order Prednisone (Prednisone 5 Mg Tablet) 5 mg PO DAILY [facility] Last Admin: 06/22/21 09:36 Dose: Not Given Documented by: Sodium Chloride (0.9 % Sodium Chloride Flush 3 Ml Syringe) 3 ml IVFLUSH QSHIFT [facility] Last Admin: 06/22/21 07:35 Dose: Not Given Documented by: Ticagrelor (Ticagrelor 90 Mg Tablet) 90 mg PO BID [facility] Last Admin: 06/22/21 09:36 Dose: Not Given Documented by: Home Medications Medication Instructions Recorded Confirmed Last Taken Type amlodipine 5 mg tablet 1 tab PO DAILY 06/21/21 06/21/21 06/21/21 History aspirin 81 mg chewable tablet 1 tab PO DAILY 06/21/21 06/21/21 06/21/21 History atorvastatin 80 mg tablet 1 tab PO DAILY@1200 06/21/21 06/21/21 06/21/21 History baricitinib 2 mg tablet (Olumiant) 1 tab PO BEDTIME 06/21/21 06/21/21 06/20/21 History esomeprazole magnesium 20 mg 1 cap PO DAILY 06/21/21 06/21/21 06/21/21 History capsule,delayed release hydrochlorothiazide 25 mg tablet 1 tab PO DAILY 06/21/21 06/21/21 06/21/21 History lisinopril 40 mg tablet 1 tab PO DAILY 06/21/21 06/21/21 06/21/21 History metoprolol succinate 50 mg 1 tab PO DAILY 06/21/21 06/21/21 06/21/21 History tablet,extended release 24 hr prednisone 5 mg tablet 1 tab PO DAILY 06/21/21 06/21/21 06/21/21 History ticagrelor 90 mg tablet (Brilinta) 1 tab PO BID 06/21/21 06/21/21 06/21/21 History Physical Exam Vital Signs: Vital Signs: Last Vital Signs Temp 98.1 F 06/21/21 16:05 Pulse 42 L 06/22/21 11:54 Resp 18 06/22/21 11:54 BP 165/41 H 06/22/21 11:54 Pulse Ox 96 06/22/21 11:54 BMI result Body Mass Index 24.6 Stable vital signs with an escape rate of 35 probably from lower AV node Neurologically intact Cardiovascular exam without neck vein distension and good bilateral carotid upstrokes No peripheral edema no acrocyanosis Chest clear no adventitious sounds Abdomen benign Results Labs CBC & Chem 7: 06/22/21 03:49 06/22/21 03:49 Labs: Short CBC 06/21/21 06/22/21 Range/Units 17:59 03:49 WBC 9.7 8.5 (4.8-10.8) X10*3/uL Hgb 11.4 L 10.5 L (14.0-18.0) g/dl Hct 34.5 L 31.2 L (42.0-52.0) % Plt Count 301 274 (160-400) X10*3/uL BMP 06/22/21 03:49 Sodium 132 L Potassium 4.0 Chloride 101 Carbon Dioxide 21 L BUN 16 Creatinine 0.78 Calcium 8.6 D Assessment and Plan (1) Complete heart block: Status: Acute (2) Symptomatic bradycardia: Status: Acute Plan For permanent dual-chamber pacemaker today
--- NOTE | 2021-06-22 16:27 | W.PM.OPN ---
Operative Note Operative Note Date of Service: 06/22/21 Narrative: Symptomatic bradycardia complete heart block with escape rate narrow at 35-after sterile preparation and draping utilizing the left subclavicular area a dual chamber pacemaker which is an Leach device was placed without complication First did left subclavian venography with 15 cc of contrast without complication highlighting the subclavian venous system demonstrating its patency and then make careful incision and dissection down to the level of the prepectoral fascia partially creating the pocket along that plane and secured securing any bleeders but there was tissue oozing from the ticagrelor and then gained separate entry x2 into the extrathoracic portion of the subclavian venous system passing retrograde 2 J-tip guidewires to the inferior vena cava without complication and then 2 6 Luxembourgish introducers 1st an active fixation right ventricular lead was was passed down under fluoroscopy and utilizing a 25 degree left anterior oblique setting we went up on to the middle of the interventricular septum deployed to screw and it was well tethered excellent injury current sensing was at about 3 and half mV and a 10 volts there was no phrenic irritation capture threshold 0.25 volts and that lead was sewn in tethered to the pectoral muscle on the floor of the pocket I then passed an active fixation right atrial lead to the right atrial appendage with a screw was deployed and again well tethered excellent injury current 2.6 mV P wave capture threshold 0.25 volts and a 10 volts no phrenic irritation so that lead also sewn to the pectoral muscle in the floor of the pocket I then completed the dissection mostly blunt along the plane of the prepectoral fascia creating the pocket placed both leads in the generator tightened the screw they were both well tethered with no change in impedance and the generator and 2 leads were then placed in the pocket and the wound was closed in 3 layers and sterilely dressed patient was awake without any neurologic issues went to the PACU and we await a postoperative chest x-ray and he is 100% AV sequentially paced
--- NOTE | 2021-06-22 16:51 | PC.NURSE ---
per pt took all belongings home
[2021-06-22] MEDS: 0.9 % Sodium Chloride Flush 3 ML SYRINGE IVFLUSH (17:40)
[2021-06-22] MEDS: Ticagrelor 90 MG TABLET PO (20:37)
[2021-06-22] MEDS: Acetaminophen 325 MG TABLET 650 MG PO (20:38)
[2021-06-23 03:24] VITALS: BP 153/68; PULSE 71; RESP 18; TEMP 36.7; O2SAT 95
[2021-06-23] MEDS: Omeprazole 20 MG CAPSULE.DR PO (05:53)
[2021-06-23 07:18] VITALS: BP 161/61; PULSE 70; RESP 18; TEMP 36; O2SAT 97
[2021-06-23] MEDS: lisinopriL 40 MG TABLET PO (07:39)
[2021-06-23] MEDS: Aspirin 81 MG TAB.CHEW PO (07:39)
[2021-06-23] MEDS: predniSONE 5 MG TABLET PO (07:40)
[2021-06-23] MEDS: 0.9 % Sodium Chloride Flush 3 ML SYRINGE IVFLUSH (07:40)
[2021-06-23] MEDS: Ticagrelor 90 MG TABLET PO (07:40)
[2021-06-23 08:33] LABS: Hemoglobin 10.5 g/dl (14.0-18.0); Mean Corpuscular HGB Conc 32.8 g/dl (31.0-36.0); Mean Corpuscular Hemoglobin 29.5 pg (27.0-33.0); Mean Corpuscular Volume 89.9 fL (80.0-98.0); Mean Platelet Volume 9.6 fL (9.4-12.4); Platelet Count 241 X10*3/uL (160-400); Red Blood Count 3.56 X10*6/uL (4.60-5.80); Red Cell Distribution Width 14.6 % (11.0-16.0); White Blood Count 6.4 X10*3/uL (4.8-10.8)
[2021-06-23 08:42] LABS: PTT Heparin Drip 30.7 SEC (53-77.9)
[2021-06-23 08:54] LABS: Anion Gap 13 (12-20); Blood Urea Nitrogen 14 mg/dL (9-16); Calcium 8.1 mg/dL (8.4-10.2); Carbon Dioxide 24 mmol/L (22-29); Chloride 107 mmol/L (96-108); Creatinine Clr Calc Pharmacy 106.4; Estimated Glomerular Filt Rate > 60; Glucose Random 101 mg/dL (60-115); Potassium 4.2 mmol/L (3.3-5.1); Sodium 140 mmol/L (135-145)
--- NOTE | 2021-06-23 09:15 | MHC.CLN ---
NUTRITION DIET CHANGED FROM REGULAR TO CARDIAC.
[2021-06-23 11:49] VITALS: BP 159/63; PULSE 70; RESP 17; TEMP 36.4; O2SAT 96
--- NOTE | 2021-06-23 12:22 | HO.POSTANES ---
Post Anesthesia Evaluation Post Anesthesia Evaluation Vital Signs: Vital Signs Temp Pulse Resp BP Pulse Ox 06/23/21 11:49 97.6 F 70 17 159/63 H 96 06/23/21 07:18 96.8 F 70 18 161/61 H 97 06/23/21 03:24 98.1 F 71 18 153/68 H 95 Anesthesia: General Mental Status: Awake Pain Control: Satisfactory Nausea/Vomiting: None Hydration: Adequate Anesthesia-Related Issues: No Anes. Related Issues
--- NOTE | 2021-06-23 12:25 | CA_ITS ---
Transthoracic Echocardiogram Patient (Last, First, Middle): Rashawn Lopez, Gender: Male Date of : 1960 Age: 60 Procedure Date: 06/23/2021 Procedure Type: Transthoracic Echocardiogram Location: S3E Height: 182.88 cm Weight: 82.1 kg BSA: 2.04 m2 Heart Rate: bpm BP: 153 / 68 mmHg Scrap Carrier: JAMEEL Referring MD: Delano He MD Symptoms: Complete heart block, CAD Study Quality: Fair Conclusions: - Normal left ventricular size and systolic function. There is mildly increased left ventricular wall thickness. The visually estimated ejection fraction is between 55-60%. - Normal right ventricular cavity size and systolic function. There is a pacemaker wire seen in the right ventricle. - The left atrium is moderately dilated. The right atrium is mildly dilated. - There is moderate mitral annular calcification. - There is mild aortic valve stenosis. There is moderate aortic valve regurgitation. Findings Left Ventricle Normal left ventricular size and systolic function. There is mildly increased left ventricular wall thickness. The visually estimated ejection fraction is between 55-60%. There is paradoxical septal motion consistent with a left bundle branch block. Diastolic function is indeterminate on the basis of available data. Right Ventricle Normal right ventricular cavity size and systolic function. There is a pacemaker wire seen in the right ventricle. Atria The left atrium is moderately dilated. The right atrium is mildly dilated. Aortic Valve The aortic valve was not well visualized. There is mild aortic valve stenosis. There is moderate aortic valve regurgitation. Mitral Valve There is moderate mitral annular calcification. There is no mitral valve regurgitation. There is no mitral valve stenosis. Pulmonic Valve The pulmonic valve was not well visualized. Tricuspid Valve Likely normal tricuspid valve structure and function. Normal right atrial pressure. There is no evidence of pulmonary hypertension. Great Vessels The pulmonary artery was not well visualized. There is mild dilatation of the sinuses of Valsalva measuring 4.14 cm. Venous The inferior vena cava is normal in size and collapses greater than 50% with inspiration. Pericardium/Pleural There is no evidence of pericardial effusion. Prior Study Comparison No prior study available for comparison. Measurements 2D Linear Measurements IVSd: 1.21 0.6-0.9/0.6-1.0 cm LVIDd: 4.68 3.9-5.3/4.2-5.9 cm LVIDd Index: 2.29 2.4-3.2/2.2-3.1 cm/m2 LVIDs: 3.47 2.0-3.6 cm LVPWd: 1.20 0.7-1.1 cm LA Diam: 3.60 2.7-3.8/3.0-4.0 cm LAIDs Index: 1.76 1.5-2.3 cm/m2 LV Mass: 264.05 67-162/88-224 g LV Mass Index: 129.44 43-95/49-115 g/m2 LVOT Diam: 2.10 3.0+(-)1.3 cm 2D Systolic Function EF 4C: 51.30 >55% EF 2C: 42.00 >55% EF BiP: 47.50 >55% Mitral Valve MV VTI: 0.49 MV Pk Wallace: 1.48 MV Mn Wallace: 1.01 MV Pk Grad: 9.00 MV Mn Grad: 5.00 MV Pk E: 1.38 MV PK A: 1.48 MV Decel Time: 235.00 E/A: 0.90 E'Lateral: 7.83 E'Medial: 6.96 E/E' Med: 19.80 E/E' Lat: 17.60 PHT: 69.00 MVA PHT: 3.19 MVA Continuity: 2.30 Decel Ingham: 5.85 Aortic Valve AoV Pk Wallace: 2.49 AoV Mn Wallace: 1.56 AoV VTI: 0.55 AoV Pk Grad: 25.00 Aov Mn Grad: 11.00 HERNAN Cont.VTI: 2.04 AI Pk Wallace: 4.53 AI Ingham: 5.08 LVOT LVOT Pk Wallace: 1.48 LVOT Mn Wallace: 0.88 LVOT VTI: 0.33 LVOT Pk Grad: 9.00 LVOT Mn Grad: 4.00 LVOT Diam: 2.10 LVOT Area: 3.46 Diastolic Function MV Pk E: 1.38 MV Pk A: 1.48 E/A: 0.90 E'Medial: 6.96 E/E' Med: 19.80 E' Laterial: 7.83 E/E' Lat: 17.60 Right Ventricle TAPSE (mm): 23.40 TVS' Wallace: 19.40 Tricuspid Valve TR Pk Wallace: 2.19 TR Pk Grad: 19.00 RA Press: 3.00 RVSP: 22.00 Great Vessels Aorta Sinus of Valsalva: 4.14 2.0-3.5 cm Updated in Other Vendor System with Status of Final Handy Chow MD electronically signed on 06/23/2021 4:00:29 PM with status of Final
--- NOTE | 2021-06-23 12:33 | MHC.CM.PN ---
Patient has been medically cleared for dc to home today, self care.
--- NOTE | 2021-06-23 12:35 | P.DS_ITS ---
DS: Providers Provider Date of Service: 06/23/21 Date of admission: 06/21/21 16:43 Date of discharge: 06/23/21 Primary care physician: Nonstaff Physician Consults: 06/21/21 16:12 Consult to Cardiology Routine Consulting Provider: Delano He Reason for consultation: symptomatic bradycardia Has provider been notified: No DS: Diagnosis Discharge Diagnosis (1) Complete heart block: Status: Acute DS: Summary Hospital Course Hospital Course: This is a 60-year-old male who presents to the emergency department today with dizziness and fatigue.? For the past 3 days patient has noticed generalized weakness, fatigue as well as dizziness.? With exertion he feels short of breath.? He denies any chest pain or palpitations.? He was seen at urgent care facility today and recommended to come to the emergency department for evaluation.? He drove himself to the emergency department.? EKG revealed profound bradycardia with heart rate in the 30s. EKG showed Mobitz I.? Case was discussed with Cardiology.? Patient received dose IV glucagon.? Heart rate remains in the 30s.? Patient is asymptomatic at rest, blood pressure has thus far remained stable.? Patient takes metoprolol at baseline, reports no recent change in his dose.? Troponin initially was 135.2 and increased to 205.3.? Patient will be admitted for further management of symptomatic bradycardia Hospital Course Patient was admitted to telemetry beta-sarah was held. Patient continue to be in a high grade AV block culminating in a a complete heart block. He remained asymptomatic. Consult was placed to Critical Care; he underwent an AV sequential pacer without incident. He was is observedfor 24 hours on telemetry and pacer was interrogated without incident. At this point time is cleared by Cardiology and can be discharged to home with follow-up with his vocational education professional at [facility] within 2 weeks Time Spent with Patient Time attestation: Total time spent providing and/or coordinating discharge services: Discharge coordination time: Greater than 30 minutes Quality: Safe Use of Opioids Does Pt have an Active Cancer Diagnosis on the Problem List?: No Quality: Stroke Does the patient have a stroke diagnosis?: No Physical Exam Vital Signs: Vital Signs: Last Vital Signs Temp 97.6 F 06/23/21 11:49 Pulse 70 06/23/21 11:49 Resp 17 06/23/21 11:49 BP 159/63 H 04/11/22 11:49 Pulse Ox 96 06/23/21 11:49 BMI result Body Mass Index 24.6 Const: Other: Who awake alert oriented x3 no acute distress Chest: Other: Pacer site clean dry and intact without ecchymosis. There is no fluctuance appreciated Resp: Other: Clear to auscultation bilaterally no rales rhonchi or wheezes Cardio: Other: No S4; positive S1-S2; no S3 murmurs rubs gallops GI: Other: Soft nontender nondistended with normoactive bowel sounds Extrem: Other: No edema bilaterally DS: Data Data Completed and Pending Labs on day of discharge: Laboratory Results - last 24 hr 06/23/21 06/23/21 06/23/21 08:26 08:26 08:26 WBC 6.4 RBC 3.56 L Hgb 10.5 L Hct 32.0 L MCV 89.9 MCH 29.5 MCHC 32.8 RDW 14.6 Plt Count 241 MPV 9.6 Absolute Nucleated RBC 0.000 Nucleated RBC % (auto) 0.0 aPTT Heparin Protocol 30.7 L D Sodium 140 Potassium 4.2 Chloride 107 Carbon Dioxide 24 Anion Gap 13 BUN 14 Creatinine 0.80 Estim Creat Clear Calc 106.4 Estimated GFR > 60 Random Glucose 101 Calcium 8.1 L Discharge Plan Discharge Patient Disposition: Home, Self-Care Discharge Diagnosis: High Grade AV block Referrals: Physician,Nonstaff [Primary Care Provider] - 1 Week Discharge Medications: Continued atorvastatin 80 mg tablet 1 tab PO DAILY@1200 0RF metoprolol succinate 50 mg tablet extended release 24 hr 1 tab PO DAILY 0RF prednisone 5 mg tablet 1 tab PO DAILY 0RF amlodipine 5 mg tablet 1 tab PO DAILY 0RF aspirin 81 mg tablet,chewable 1 tab PO DAILY 0RF hydrochlorothiazide 25 mg tablet 1 tab PO DAILY 0RF lisinopril 40 mg tablet 1 tab PO DAILY 0RF esomeprazole magnesium 20 mg capsule,delayed release(DR/EC) 1 cap PO DAILY 0RF Brilinta 90 mg tablet 1 tab PO BID 0RF Olumiant 2 mg tablet 1 tab PO BEDTIME 0RF Discharge Orders: Discharge Order (Routine); Ordered 06/23/21 Ordered By: Cameron Pablo Diet: advance to usual diet Activity on Discharge: As tolerated Stand Alone Forms: Patient Portal Discharge page Care Plan Goals: Follow-up with [facility] Cardiology as scheduled. Can follow-up with Dr. He if unavailable at [facility] Concerns: Return to the hospital if any exertional/resting chest pain Plan of Treatment: Continue all meds as ordered Assessment: See discharge summary
--- NOTE | 2021-06-23 12:51 | PM.PNCARD ---
Subjective Subjective Date of Service: 06/23/21 Principal diagnosis: CHB, status post dual chamber PPM Interval history: Cardiology follow up for post PPM. Seen at 1100. Today he reports feeling much better than admit. No concerning symptoms. Mild soreness at pacemaker site. Has been ambulating on room without dizziness, sob. Feels ready to go home. Review of Systems Review of Systems as above Yes all other systems are reviewed and are negative Physical Exam Vital Signs: Last Vital Signs Temp 97.6 F 06/23/21 11:49 Pulse 70 06/23/21 11:49 Resp 17 06/23/21 11:49 BP 159/63 H 06/23/21 11:49 Pulse Ox 96 06/23/21 11:49 BMI result Body Mass Index 24.6 Const General: cooperative, healthy appearing, no acute distress, alert and awake Orientation/consciousness: patient oriented x3 Neck Neck: Yes normal visual inspection and Yes no JVD Chest Other: Pacemaker site Left upper chest with dry gauze dressing covered with tegaderm. Very mild swelling and small amount of ecchimosis noted. Resp Effort & Inspection: normal respiratory effort, able to speak in complete sentences and not labored Auscultation: clear to auscultation bilaterally, no crackles, no rales, no rhonchi and no wheezes Cardio Rate: regular rate Rhythm: regular rhythm Heart sounds: S1 normal heart sound present and S2 normal heart sound present Peripheral pulses: Peripheral pulses 2+ throughout GI Inspection: Yes normal to inspection Neuro General: patient oriented x3 Extrem General: Yes normal to inspection and No edema Objective Labs and Meds Result diagrams: 06/23/21 08:26 06/23/21 08:26 Lab results: Laboratory Results - last 24 hr 06/23/21 06/23/21 06/23/21 08:26 08:26 08:26 WBC 6.4 RBC 3.56 L Hgb 10.5 L Hct 32.0 L MCV 89.9 MCH 29.5 MCHC 32.8 RDW 14.6 Plt Count 241 MPV 9.6 Absolute Nucleated RBC 0.000 Nucleated RBC % (auto) 0.0 aPTT Heparin Protocol 30.7 L D Sodium 140 Potassium 4.2 Chloride 107 Carbon Dioxide 24 Anion Gap 13 BUN 14 Creatinine 0.80 Estim Creat Clear Calc 106.4 Estimated GFR > 60 Random Glucose 101 Calcium 8.1 L Imaging Radiologist's impression: Impressions Guidance Fluoroscopy 06/22/21 16:00 IMPRESSION: Please refer to operative report for complete evaluation. Chest X-Ray 06/22/21 16:42 IMPRESSION: New dual-lead pacemaker. No pneumothorax. Chronic changes otherwise. Chest X-Ray 06/23/21 06:10 IMPRESSION: Left-sided pacemaker lead tips overlie the regions of the right atrium and right ventricle, similar to prior. No acute cardiopulmonary findings. Progress Note: A&P Assessment and plan (1) Pacemaker: Status: Acute Assessment and Plan: Admit with fatigue, dizziness. Initially with bradycardia and mobitz 1. Home Metoprolol was held. Yest am with EKG showing complete heart block. He underwent a [employer] dual chamber pacemaker placement with Dr Mullen. Interrogation post insertion and this am shows device is functioning normal. CXR post insertion and this am show appropriate lead placement, no pneumothorax. Tele showing A/ V paced rhythm. This am he reports feeling well with full resolution of his symptoms. Pacemaker home monitoring, arm positioning and site care reviewed. Pt can be discharged from a cardiology perspective. He has a consulting technical manager at [facility] and can follow up with that provider for wound check and ongoing PPM monitoring. We are able to follow him in our office if needed. (2) Complete heart block: Status: Acute (3) Symptomatic bradycardia: Status: Acute Fall Risk Details Current Medications: Current Medications Acetaminophen (Acetaminophen 325 Mg Tablet) 650 mg PO Q6H PRN PRN Reason: Pain, Mild (Pain Scale 1-3) Last Admin: 06/22/21 20:38 Dose: 650 mg Documented by: Acetaminophen (Acetaminophen 325 Mg Tablet) 650 mg PO ONCE PRN PRN Reason: Pain, Mild (Pain Scale 1-3) Aspirin (Aspirin 81 Mg Tab.Chew) 81 mg PO DAILY [facility] Last Admin: 06/23/21 07:39 Dose: 81 mg Documented by: Atorvastatin Calcium (Atorvastatin Calcium 80 Mg Tablet) 80 mg PO DAILY@1200 [facility] Last Admin: 06/22/21 11:55 Dose: Not Given Documented by: Atropine Sulfate (Atropine Sulfate 1 Mg/Ml Vial) 0.5 mg IVPUSH ONCE PRN PRN Reason: symptomatic bradycarida Baricitinib (Baricitinib 2 Mg Tablet) 2 mg PO BEDTIME [facility] Last Admin: 06/22/21 20:37 Dose: 2 mg Documented by: Docusate Sodium (Docusate Sodium 100 Mg Capsule) 100 mg PO DAILY PRN PRN Reason: Constipation Fentanyl (Fentanyl Citrate/Pf 100 Mcg/2 Ml Vial) 25 mcg IVPUSH Q5M PRN; Protocol PRN Reason: Pain, Moderate (Pain Scale 4-6 Hydromorphone HCl (Hydromorphone Hcl 0.5 Mg/0.5 Ml Syringe) 0.25 mg IVPUSH Q5M PRN; Protocol PRN Reason: Pain, Severe (Pain Scale 7-10) Promethazine HCl 12.5 mg/ (Sodium Chloride) 50.5 mls @ 202 mls/hr IV ONCE PRN PRN Reason: Nausea and Vomiting Lisinopril (Lisinopril 40 Mg Tablet) 40 mg PO DAILY [facility]; Protocol Last Admin: 06/23/21 07:39 Dose: 40 mg Documented by: Omeprazole (Omeprazole 20 Mg Capsule.Dr) 20 mg PO DAILY@0630 [facility] Last Admin: 06/23/21 05:53 Dose: 20 mg Documented by: Ondansetron HCl (Ondansetron Hcl 4 Mg/2 Ml Vial) 4 mg IVPUSH ONCE PRN PRN Reason: Nausea and Vomiting Oxycodone HCl (Oxycodone Hcl Immed Release 5 Mg Tablet) 5 mg PO ONCE PRN PRN Reason: Pain, Severe (Pain Scale 7-10) Pharmacy Consult (Consult Rx Perform Med Rec) 1 each MISCELLANE ONCE PRN PRN Reason: Consult order Prednisone (Prednisone 5 Mg Tablet) 5 mg PO DAILY [facility] Last Admin: 06/23/21 07:40 Dose: 5 mg Documented by: Sodium Chloride (0.9 % Sodium Chloride Flush 3 Ml Syringe) 3 ml IVFLUSH QSHIFT [facility] Last Admin: 06/23/21 07:40 Dose: 3 ml Documented by: Ticagrelor (Ticagrelor 90 Mg Tablet) 90 mg PO BID [facility] Last Admin: 06/23/21 07:40 Dose: 90 mg Documented by: Time Spent With Patient Time: Total time spent is greater than 50% in coordination of care (as documented) at patient's floor/unit and/or counseling patient: 22 Progress Note: Quality Stroke Does the patient have a stroke diagnosis?: No Procedures Date of Service Date of Service: 06/23/21
[2021-06-23] MEDS: Atorvastatin Calcium 80 MG TABLET PO (13:20)
[2021-06-23] MEDS: Acetaminophen 325 MG TABLET 650 MG PO (13:21)
== END 2021-06-23 14:00 | disposition home or self-care (01) | DRG 243 ==
LOC: HO.ED 16:40 → HO.EDOVER 17:05 → HO.S3 06-22 13:09
PROVIDERS: Internal Medicine; Internal Medicine Cardiovascular Disease; Nurse Practitioner Family; Admitting Provider Physician Assistant Medical; Emergency Provider Emergency Medicine; Visit Provider Hospitalist
DX: I44.1 Atrioventricular block, second degree (principal); E87.1 Hypo-osmolality and hyponatremia; I25.10 Atherosclerotic heart disease of native coronary artery without angina pectoris; Z95.5 Presence of coronary angioplasty implant and graft; M06.9 Rheumatoid arthritis, unspecified; K21.9 Gastro-esophageal reflux disease without esophagitis; E78.5 Hyperlipidemia, unspecified; I10 Essential (primary) hypertension; Z20.822 Contact with and (suspected) exposure to COVID-19; Z87.891 Personal history of nicotine dependence; Z79.52 Long term (current) use of systemic steroids; Z79.82 Long term (current) use of aspirin; Z79.899 Other long term (current) drug therapy
CPT/HCPCS: 36415; 71045; 80048; 80076; 83735; 84484; 85025; 85027; 85610; 85730; 87635; 93005; 93306; 96361; 96374; 99285; C1785; C1892; C1898; J0690; J1610; J2250; J2405; J3010; Q9967